=== PATIENT | female | born 1995 | race Caucasian/White ===

== ENCOUNTER → 2017-05-13 | Outpatient (CLI) | payer SELFPAY ==
[~2017-05-13] MED LIST: ALBU17AE23 IH; ALBUTEROL; AZIT250T PO; D-ME118S33 PO; PRD20T PO; TR1C15 TOP
--- NOTE | 2017-05-13 15:56 | Diagnostic Imaging Report ---
PROCEDURE: US Thyroid. TECHNIQUE: Multiple real-time grayscale images were obtained of the thyroid in various projections. INDICATION: Goiter. COMPARISON: None. FINDINGS: The right lobe measures 5.2 cm x 1.4 cm x 1.5 cm and the left lobe measures 4 cm x 1 cm x 1.6 cm. No focal nodule is seen. IMPRESSION: Unremarkable thyroid sonogram. Dictated by: Dictated on workstation # [id number]
== END ==
LOC: RAD 13:20
PROVIDERS: ATTEND Nurse Practitioner Family
DX: E04.9 Nontoxic goiter, unspecified (principal)
CPT/HCPCS: 76536

== ENCOUNTER → 2017-05-31 | Outpatient (CLI) | payer SELFPAY ==
--- NOTE | 2017-06-01 13:49 | Diagnostic Imaging Report ---
EXAMINATION: Nuclear Medicine I-123 thyroid uptake and scan. INDICATION: Goiter. COMPARISON: There are no previous Nuclear Medicine thyroid scans available for comparison. The thyroid ultrasound exam performed on 05/13/2017 noted that the thyroid gland was not enlarged and that there was no focal abnormality involving either lobe. FINDINGS: This study was performed following administration of 193 ?Ci of I-123. The 24-hour uptake value is 40.6% (normal 15-35%). The reason for the slightly elevated thyroid uptake is not certain. The possibility of hyperthyroidism should be considered. Correlation with the patient's thyroid laboratory values would be recommended. There is generalized distribution of the radiotracer throughout each lobe of the thyroid. There is no focal area of increased or decreased activity. IMPRESSION: 1. The 24 hour thyroid uptake value is slightly elevated. The reason for this is not certain. Clinical followup is recommended. 2. The thyroid gland itself is not enlarged and there is no focal area of increased or decreased activity involving either lobe. Dictated by: Dictated on workstation # [id number]
== END ==
LOC: CARD 11:51
PROVIDERS: ATTEND Physician Assistant
DX: E04.9 Nontoxic goiter, unspecified (principal)
CPT/HCPCS: 78014

== ENCOUNTER 2018-06-29 16:10 | Emergency (ER) | payer OTHER ==
[~2018-06-29] VITALS: Ht 170.2 cm; Wt 95.3 kg
--- NOTE | 2018-06-29 16:34 | ED Lower Extremity ---
General Chief Complaint: Lower Extremity Stated Complaint: R FOOT PAIN/NO INJ Source: patient Exam Limitations: no limitations History of Present Illness Date Seen by Provider: Jun 29, 2018 Time Seen by Provider: 16:32 Initial Comments To ER by mother with reports of right forefoot pain for about 36 hours upon awakening worse with weightbearing. No known injury. 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 Onset: just prior to arrival Severity: moderate Pain/Injury Location: right foot Method of Injury: unknown Modifying Factors: Worse With Movement Allergies and Home Medications Allergies Coded Allergies: No Known Drug Allergies (Unverified , 08/12/08) Home Medications Albuterol 17 Gm Aerosol, 1 GM IH PRN, (Reported) Azithromycin 250 Mg Tablet, 250 MG PO UD TAKE 2 TABLETS TODAY, THEN TAKE 1 TABLET DAILY FOR 4 MORE DAYS Prescribed by: SAÚL PINZON on 04/29/151853 D-Methorphan Hb/P-Epd HCl/Bpm 118 Ml Syrup, 5 ML PO Q4H PRN for COUGH Prescribed by: SAÚL PINZON on 04/29/151853 Triamcinolone Acet 15 Gm Cr, 0 TOP BID - TID PRN APPLY SPRARINGLY TO AFFECTED AREA(S) Prescribed by: SAÚL PINZON on 08/02/14 1845 Patient Home Medication List Home Medication List Reviewed: Yes Review of Systems Constitutional: see HPI EENTM: see HPI Respiratory: no symptoms reported Cardiovascular: no symptoms reported Genitourinary: no symptoms reported Musculoskeletal: no symptoms reported Skin: no symptoms reported Psychiatric/Neurological: No Symptoms Reported Past Ssfttyf-Ovkxet-Cditde Hx Patient Social History Recent Foreign Travel: No Contact w/Someone Who Travel: No Immunizations Up To Date PED Vaccines UTD: Yes Seasonal Allergies Seasonal Allergies: No Past Medical History Asthma Reproductive Disorders: No Sexually Transmitted Disease: No HIV/AIDS: No Adverse Reaction/Blood Tranf: No Family Medical History Asthma Physical Exam Vital Signs Capillary Refill : Height, Weight, BMI Height: 5'7" Weight: 186lbs. 8oz. 84.123105yc; 29.13 BMI Method:Actual General Appearance: WD/WN, no apparent distress HEENT: PERRL/EOMI, normal ENT inspection Respiratory: no respiratory distress, no accessory muscle use Hips: bilateral hip non-tender, bilateral hip normal inspection, bilateral hip normal range of motion Legs: bilateral leg non-tender, bilateral leg normal inspection, bilateral leg normal range of motion Knees: bilateral knee non-tender, bilateral knee normal inspection, bilateral knee normal range of motion Ankles: bilateral ankle non-tender Feet: bilateral foot non-tender (Nontender nontender to palpation on the right , only pain with weightbearing to the distal foot. No erythema or swelling.), bilateral foot normal inspection, bilateral foot normal range of motion Neurologic/Psychiatric: alert, normal mood/affect, oriented x 3 Skin: normal color, warm/dry Departure Impression Primary Impression: Right foot sprain Qualified Codes: S93.601A - Unspecified sprain of right foot, initial encounter Disposition: HOME, SELF-CARE Condition: Against Medical Advice Departure-Patient Inst. Decision time for Depature: 16:34 Referrals: [facility] [place] ([place]Family) Primary Care Physician Patient Instructions: Foot Sprain (DC) Add. Discharge Instructions: 1. Return to ER for any concerns 2. Tylenol and Motrin for pain 3. Follow-up with her doctor next week if pain persists. All discharge instructions reviewed with patient and/or family. Voiced understanding. Images Extremities-Lower 1 - Other-See Progress Note SAÚL PINZON APRN Jun 29, 2018 16:34
--- NOTE | 2018-06-29 16:56 | Diagnostic Imaging Report ---
INDICATION: Right lateral foot pain FINDINGS: Three views of the right foot show no fracture, dislocation or other acute abnormalities. IMPRESSION: Negative right foot. Dictated by: Dictated on workstation # [id number]
[2018-06-29 17:01] VITALS: BP 150/70
--- OUTSIDE RECORDS SUMMARY | 2018-06-29 20:07 | XMS REPORT ---
Author Author Migration, Doctor Organization [facility] Address Unknown Phone Unavailable Care Team Providers Care Clay Roaster Name Role Phone Migration, Doctor Unavailable Unavailable PROBLEMS Type Condition ICD9-CM Code PMI46-DP Code Onset Dates Condition Status SNOMED Code Problem Goiter E04.9 Active 2475115 Problem Other obesity due to excess calories E66.09 Active 422750044 Problem Elevated fasting glucose R73.01 Active 63337278 Problem GERD (gastroesophageal reflux disease) K21.9 Active 096634129 Problem Mild intermittent asthma without complication J45.20 Active 480288447 Problem Body mass index (BMI) of 32.0-32.9 in adult Z68.32 Active 615472578 ALLERGIES No Information ENCOUNTERS Encounter Location Date Diagnosis [place] [address] [address] Sep, [place] [address] [address] May, [place] [address] [address] May, Goiter E04.9 and URI, acute J06.9 [place] [address] [place] [id number] [place] [address] May, Goiter E04.9 [place] [address] [place] [id number] [place] [address] Apr, Goiter E04.9 [place] [address] [address] Apr, 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 [place] [address] [place] [id number] [place] [address]- [address] Apr, 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 [place] [address] [address] 30 Mar, 2017 Mild intermittent asthma without complication J45.20 ; GERD (gastroesophageal reflux disease) K21.9 ; Other obesity due to excess calories E66.09 ; Body mass index (BMI) of 32.0-32.9 in adult Z68.32 ; Goiter E04.9 and Nodule of neck R22.[address] [address] Mar, [facility] [address] [address] Feb, Cough R05 and Mild intermittent asthma without complication J45.[address] [id number] 24 May, 2015 Abdominal pain R10.9 ; PCOS (polycystic ovarian syndrome) E28.2 and Epigastric abdominal pain R10.[address] [address] May, Abdominal pain R10.9 ; Asthma J45.909 ; GERD ( gastroesophageal reflux disease) K21.9 and UTI (urinary tract infection) N39.[address] [address] Jan, Gastro-esophageal reflux disease without esophagitis K21.9 and Dysmenorrhea N94.[address] [id number] Nov, Upper respiratory infection 465.[address] [address] 09 Nov, 2014 Upper respiratory infection 465.9 and Asthma 493.[address] [id number] Oct, Bronchitis 490 and Ph[address]itis [address] [address] Jun, [address] [place] [address] Jun, [facility] [address] [facility] [id number] [place] [address] May, [facility] [address] [facility] [id number] [place] [address] May, [facility] [address] [facility] [id number] [place] [id number] Apr, [facility] [place] [facility] [address] [facility] [id number] [place] [address] Apr, [facility] [address] [facility] [id number] [place] [address] July, [facility] [place] [facility] [address] [facility] [id number] [place] [address] July, [facility] [address] [place] [id number] [address] May, [facility] [place] [facility] [address] [facility] [id number] [place] [address] May, [facility] [address] [facility] [id number] [place] [address] Nov, [facility] [place] [facility] [address] [facility] [id number] [place] [address] Nov, [facility] [address] [id number] [id number] Oct, [facility] [place] [facility] [address] [id number] [place] [address] Oct, [facility] [place] [facility] [address] [id number] [place] [address] Aug, [facility] [place] [facility] [address] [facility] [id number] [place] [address] July, [facility] [place] [facility] [address] [facility] [id number] [place] [address] July, [facility] [place] [facility] [address] [facility] [id number] [place] [address] Jun, [facility] [address] [facility] [id number] [place] [address] Apr, [facility] [address] [facility] [id number] [place] [address] Apr, [facility] [id number] [place] [id number] Mar, [facility] [address] [facility] [id number] [place] [address] Mar, [facility] [address]00565100[place] [address] Feb, [facility] [address] [facility] [id number] [place] [address] Feb, [facility] [address]65[address] [address] Feb, [facility] [address] [facility] [id number] [place] [address] Feb, [facility] [id number] [place] [id number] Dec, [facility] [id number] [place] [id number] Dec, [facility] [address]65[address] [address] Dec, [facility] [address] [facility] [id number] [place] [address] Dec, [facility] [address] [facility] [id number] [place] [id number] Nov, [facility] [address] [facility] [id number] [place] [address] Sep, [facility] [place] [facility] [address] [place] [id number] [address] July, [facility] [address]00565100[place] [address] May, [facility] [place] [address]65100[place] [address] Mar, [facility] [place] [address]65100[place] [address] Nov, [facility] [place] [address]65100[place] [address] Oct, [facility] [place] [address] [place] [id number] [address] Mar, [facility] [place] [address] [place] [id number] [place] [address] Feb, [facility] [place] [address]65100[place] [address] Dec, [facility] [place] [id number] [place] [address] Dec, [facility] [place] [address]65100[place] [address] Nov, [facility] [place] [address]65100[place] [address] Dec, [facility] [place] [address]65100[place] [address] July, [facility] [place] [address]65100[place] [address] Dec, IMMUNIZATIONS No Known Immunizations SOCIAL HISTORY Never Assessed REASON FOR VISIT [place] [place] PLAN OF CARE VITAL SIGNS MEDICATIONS Medication Instructions Dosage Frequency Start Date End Date Duration Status Naftin 1 % apply to the affected and surrounding areas of skin by Topical route 1 time per day for 4 weeks use at Apr, Active Albuterol 90 mcg/actuation 2 puffs by Inhalation route 4 times per dayPRN Dec, Active Omnicef 300 mg 2 capsule by Oral route 1 time per day for 14 day(s) Mar, Active PredniSONE 20 mg 3 tablet by Oral route 1 time per day for 5 day(s) Mar, Active RESULTS No Results PROCEDURES No Known procedures INSTRUCTIONS MEDICATIONS ADMINISTERED No Known Medications MEDICAL (GENERAL) HISTORY Type Description Date Medical History asthma Hospitalization History pneumonia x 2 as infant
--- OUTSIDE RECORDS SUMMARY | 2018-06-29 20:07 | XMS REPORT ---
Author Author CHERILIZZIE Organization [facility] Address [address] [place] [address] Care Team Providers Care Restaurant Server Name Role Phone LIZZIE ALONZO Unavailable PROBLEMS Type Condition ICD9-CM Code IKZ56-CA Code Onset Dates Condition Status SNOMED Code Problem Other obesity due to excess calories E66.09 Active 567610387 Problem Goiter E04.9 Active 6783144 Problem GERD (gastroesophageal reflux disease) K21.9 Active 535133265 Problem Elevated fasting glucose R73.01 Active 06075353 Problem Body mass index (BMI) of 32.0-32.9 in adult Z68.32 Active 607055468 Problem Mild intermittent asthma without complication J45.20 Active 492065788 ALLERGIES No Information ENCOUNTERS Encounter Location Date Diagnosis [place] [address] [address] Sep, [place] [address] [address] May, [place] [address] [address] May, Goiter E04.9 and URI, acute J06.9 [place] [address] [place] [id number] [place] [address] May, Goiter E04.9 [place] [address] [address] 15 Apr, 2017 Goiter E04.9 [place] [address] [place] [id number] [place] [address] Apr, 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 [address] [place] [id number] [place] [address] Mar, [facility] [address] [address] Feb, Cough R05 and Mild intermittent asthma without complication J45.20 [facility] [address] [id number] 24 May, 2015 Abdominal pain R10.9 ; PCOS (polycystic ovarian syndrome) E28.2 and Epigastric abdominal pain R10.13 [place] [address] [place] [id number] [place] [address] May, Abdominal pain R10.9 ; Asthma J45.909 ; GERD ( gastroesophageal reflux disease) K21.9 and UTI (urinary tract infection) N39.0 [place] [address] [place] [id number] [place] [address] Jan, Gastro-esophageal reflux disease without esophagitis K21.9 and Dysmenorrhea N94.6 [facility] [address] [place] [id number] [place] [id number] 10 Nov, 2014 Upper respiratory infection 465.9 [place] [address] [place] [id number] [place] [address]- [address] 09 Nov, 2014 Upper respiratory infection 465.9 and Asthma 493.90 [facility] [address] [place] [id number] [place] [id number] Oct, Bronchitis 490 and Pharyngitis 462 [place] [address] [address] Jun, [facility] [place] [facility] [address] [id number] [place] [address] 25[address] Jun, [facility] [place] [facility] [address] [facility] [id number], [place] [address]- [address] May, [facility] [place] [facility] [address] [facility] [id number], [place] [address]- [address] May, [facility] [address] [facility] [id number][place] [id number] Apr, [facility] [place] [facility] [address] [id number] [place] [address] Apr, [facility] [place] [facility] [address] [facility] [id number], [place] [address] July, [facility] [place] [facility] [address] [facility] [id number], [place] [address]- [address] July, [facility] [place] [facility] [address] [facility] [id number], [place] [address]- 58[address] May, [facility] [place] [facility] [address] [facility] [id number], [place] [address]- [address] May, [facility] [place] [facility] [address] [facility] [id number], [place] [address] Nov, [facility] [place] [facility] [address] [id number], [place] [address]- [address] Nov, [facility] [address] [facility] [id number][place] [id number] Oct, [facility] [place] [facility] [address] [id number] [place] [address]- [address] Oct, [facility] [place] [facility] [address] [facility] [id number], [place] [address]- 25[address] Aug, [facility] [place] [facility] [address] [facility] [id number], [place] [address]- [address] July, [facility] [place] [facility] [id number], [place] [address] July, [facility] [address]00565100[place], [place] [address]- [address] Jun, [facility] [address] [place] [address]- [address] Apr, [facility] [address]00565100[place], [place] [address]- [address] Apr, [facility] [address] [place] [id number] Mar, [facility] [address] [place] [id number] [place] [address]- 7[address] Mar, [facility] [address] [place] [id number] [place] [address]- 8456 Feb, [facility] [address] [place] [id number] [place] [address]- 8286 Feb, [facility] [address] [place] [id number], [place] [address]- [address] Feb, [facility] [address] [place] [id number] [place] [address]- [address] Feb, [facility] [address] [place] [id number] Dec, [facility] [address] [place] [address] [id number] Dec, [facility] [place] [facility] [address]00565100[place], [place] [address]- [address] Dec, [facility] [address] [facility] [id number], [place] [address]- 25[address] Dec, [facility] [address] [place] [id number] Nov, [facility] [place] [facility] [address]65100[place], [place] [address] Sep, [facility] [place] [facility] [address]00565100[place], [place] [address] July, [facility] [address] [place] [id number] [address] May, [facility] [address] [facility] [id number], [place] [address] Mar, [facility] [address]00565100[place] [address] Nov, [facility] [address] [facility] [id number] [address] Oct, [facility] [address] [facility] [id number] [address] Mar, [facility] [address]00565100[place] [address] Feb, [facility] [address]00565100[place] [address] Dec, [facility] [address]00565100[place] [address] Dec, [facility] [address]00565100[place] [address] Nov, [facility] [address]00565100[place] [address] Dec, [facility] [address] [place] [id number], [place] [address] July, [facility] [address]65100[place], [place] [address] 2546 Dec, IMMUNIZATIONS No Known Immunizations SOCIAL HISTORY Never Assessed REASON FOR VISIT Medication refill request PLAN OF CARE VITAL SIGNS MEDICATIONS Unknown Medications RESULTS No Results PROCEDURES No Known procedures INSTRUCTIONS MEDICATIONS ADMINISTERED No Known Medications MEDICAL (GENERAL) HISTORY Type Description Date Medical History asthma Hospitalization History pneumonia x 2 as
--- OUTSIDE RECORDS SUMMARY | 2018-06-29 20:08 | XMS REPORT ---
Author Author CHERI LIZZIE Organization [facility] Address [address] [place] [address] Care Team Providers Care Smoke Chaser Name Role Phone ALONZOLIZZIE Armstrong Unavailable PROBLEMS Type Condition ICD9-CM Code XWR13-SN Code Onset Dates Condition Status SNOMED Code Problem Other obesity due to excess calories E66.09 Active 881525167 Problem Goiter E04.9 Active 6469258 Problem GERD (gastroesophageal reflux disease) K21.9 Active 612776694 Problem Elevated fasting glucose R73.01 Active 23436048 Problem Body mass index (BMI) of 32.0-32.9 in adult Z68.32 Active 473671787 Problem Mild intermittent asthma without complication J45.20 Active 186638471 ALLERGIES No Information ENCOUNTERS Encounter Location Date Diagnosis [place] [address] [address] May, [place] [address] [address]- [address] May, Goiter E04.9 and URI, acute J06.9 [facility] [address] 73739- 9608 May, Goiter E04.9 [facility] [address] [place] [id number] [place] [address]77- 0614 Apr, Goiter E04.9 [facility] [address] [address]- 1992 Apr, 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 WALK IN [facility] [address] [address] Feb, Cough R05 and Mild intermittent asthma without complication J45.[address] [id number] 24 May, 2015 Abdominal pain R10.9 ; PCOS (polycystic ovarian syndrome) E28.2 and Epigastric abdominal pain R10.13 [place] [address] [address]- 48[address] May, Abdominal pain R10.9 ; Asthma J45.909 ; GERD ( gastroesophageal reflux disease) K21.9 and UTI (urinary tract infection) N39.0 [place] [address] 37[address]- 9039 Jan, Gastro-esophageal reflux disease without esophagitis K21.9 and Dysmenorrhea N94.[address] [id number] Nov, Upper respiratory infection 465.9 [place] [address] 45756- 8487 Nov, Upper respiratory infection 465.9 and Asthma 493.[address] [id number] Oct, Bronchitis 490 and Pharyngitis 462 [place] [address] 5[address]60- 9798 Jun, [place] [address] 94380- 2546 Jun, [facility] [address] [id number] [place] [address] 2546 May, [facility] [address] [id number] [place] [address] 2546 May, [facility] [address] [facility] [id number][place] [id number] Apr, [facility] [place] [facility] [address] [id number] [place] [address] 2546 Apr, [facility] [address] [id number] [place] [address] 2546 July, [facility] [place] [facility] [address] [id number] [place] [address] 2546 July, [facility] [address] [facility] [id number] [place] [address]- 2546 May, [facility] [place] [facility] [address] [id number] [place] [address] 2546 May, [facility] [address] [id number] [place] [address]- 3176 Nov, [facility] [place] [facility] [address] [id number] [place] [address]- 2546 Nov, [facility] [address] [facility] [id number][place] [id number] Oct, [facility] [place] [facility] [address] [id number] [place] [address]- 2546 Oct, [facility] [place] [facility] [address] [id number] [place] [address]- 2546 Aug, [facility] [place] [facility] [address] [id number] [place] [address]- 2546 July, [facility] [place] [facility] [address] [id number] [place] [address]- 2546 July, [facility] [place] [facility] [address] [id number] [place] [address]- 4576 Jun, [facility] [address]65100[place] [address]- 4056 Apr, [facility] [address]65100[place] [address]- 1066 Apr, [facility] [id number][place] [id number] Mar, [facility] [place] [facility] [address] [place] [id number] [place] [address] 94699- 3148 Mar, [facility] [address] [place] [id number] [place] [address] 86746- 4207 Feb, [facility] [place] [facility] [address] [place] [id number] [place] [address] 53173- 4560 Feb, [facility] [address] [id number] [place] [address] 00047- 5799 Feb, [facility] [address]65100[place] [address]- 8125 Feb, [facility] [id number] [place] [id number] Dec, [facility] [address] [place] [address] [id number] Dec, [facility] [address]65100[place] [address]- 6906 Dec, [facility] [place] [facility] [address]65100[place] [address]- 1626 Dec, [facility] [address]00565100[place] [id number] Nov, [facility] [place] [facility] [address] [place] [address] [id number] [place] [address]- 9296 Sep, [facility] [place] [facility] [address]65100[place] [address]- 2306 July, [facility] [place] [facility] [address]65100[place] [address]- 2786 May, [facility] [address] [facility] [id number] [place] [address]- 9649 Mar, [facility] [address] [facility] [id number] [place] [address]- 3276 Nov, [facility] [address]65100[place] [address]- 3123 Oct, [facility] [address] [facility] [id number] [place] [address]- 3406 Mar, [facility] [address] [facility] [id number] [place] [address]- 7390 Feb, [facility] [address]65[address] [address]- 0979 Dec, [facility] [address]65[address] [address]- 0339 Dec, [facility] [address]65[address] [address]- 9430 Nov, [facility] [address]65[address] [address]64 Dec, [facility] [address]65100[place] [address]- 6329 July, [facility] [address] [place] [id number] [place] [address]- 0268 Dec, IMMUNIZATIONS No Known Immunizations SOCIAL HISTORY Never Assessed REASON FOR VISIT Requests return call PLAN OF CARE VITAL SIGNS MEDICATIONS Unknown Medications RESULTS Name Result Date Reference Range NUCLEAR MED : Thyroid Scan 2017-05-31 PROCEDURES No Known procedures INSTRUCTIONS MEDICATIONS ADMINISTERED No Known Medications MEDICAL (GENERAL) HISTORY Type Description Date Medical History asthma Hospitalization History pneumonia x 2 as infant
--- OUTSIDE RECORDS SUMMARY | 2018-06-29 20:08 | XMS REPORT ---
Author Author CHERI LIZZIE Organization [facility] Address [address] [place] [address] Care Team Providers Care Hall Tender Name Role Phone ALONZOLIZZIE Armstrong Unavailable PROBLEMS Type Condition ICD9-CM Code AFD74-FW Code Onset Dates Condition Status SNOMED Code Problem Other obesity due to excess calories E66.09 Active 913408066 Problem Goiter E04.9 Active 6181312 Problem GERD (gastroesophageal reflux disease) K21.9 Active 748738471 Problem Elevated fasting glucose R73.01 Active 73665308 Problem Body mass index (BMI) of 32.0-32.9 in adult Z68.32 Active 325076598 Problem Mild intermittent asthma without complication J45.20 Active 365848689 ALLERGIES No Known Allergies ENCOUNTERS Encounter Location Date Diagnosis [place] [address] [address]- [address] May, [place] [address] 24892- 5754 May, Goiter E04.9 and URI, acute J06.9 [place] [address] [place] [id number] [place] [address] 46779- 0625 May, Goiter E04.9 [facility] [address] [place] [id number] [place] [address] 56373- 7275 Apr, Goiter E04.9 [facility] [address] 17186- 9137 Apr, 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 [address] 255[address] -[address]43 Feb, Cough R05 and Mild intermittent asthma without complication J45.20 [facility] [address] [id number] May, Abdominal pain R10.9 ; PCOS (polycystic ovarian syndrome) E28.2 and Epigastric abdominal pain R10.[address] [address]- 1582 May, Abdominal pain R10.9 ; Asthma J45.909 ; GERD ( gastroesophageal reflux disease) K21.9 and UTI (urinary tract infection) N39.[address] 16185- 8224 Jan, Gastro-esophageal reflux disease without esophagitis K21.9 and Dysmenorrhea N94.[address] [id number] Nov, Upper respiratory infection 465.9 [place] [address] 96272- 3948 Nov, Upper respiratory infection 465.9 and Asthma 493.[address] [id number] Oct, Bronchitis 490 and Pharyngitis 462 [place] [address] 80[address]- 0786 Jun, [place] [address] 21100- 2546 Jun, [facility] [address] [id number], [place] [address]- 2546 May, [facility] [address] [id number][place] [address]- 2546 May, [facility] [address] [facility] [id number][place] [address] Apr, [facility] [place] [facility] [address] [id number], [place] [address] 2546 Apr, [facility] [place] [facility] [address] [id number], [place] [address]- 2676 July, [facility] [place] [facility] [address] [id number], [place] [address] 2546 July, [facility] [address] [facility] [id number][place] [address]- 2546 May, [facility] [place] [facility] [address] [id number], [place] [address] 2546 May, [facility] [address] [id number], [place] [address]- 4486 Nov, [facility] [place] [facility] [address] [id number], [place] [address]- 2546 Nov, [facility] [address] [facility] [id number][place] [id number] Oct, [facility] [place] [facility] [address] [id number], [place] [address] 2546 Oct, [facility] [place] [facility] [address] [id number], [place] [address]- 2546 Aug, [facility] [place] [facility] [address] [id number], [place] [address]- 2546 July, [facility] [place] [facility] [address] [id number], [place] [address]- 2546 July, [facility] [place] [facility] [address]00565100[place], [place] [address]- 5216 Jun, [facility] [address]00565100[place], [place] [address]- 9286 Apr, [facility] [address]00565100[place], [place] [address]- 8006 Apr, [facility] [id number], [place] [address] Mar, [facility] [place] [facility] [address]00565100[place], [place] [address]- 8406 Mar, [facility] [id number] [place] [address] 01809- 1510 Feb, [facility] [place] [facility] [address] [place] [id number], [place] [address]- 9666 Feb, [facility] [id number] [place] [address] 48847- 3141 Feb, [facility] [address]00565100[place], [place] [address]- 3761 Feb, [facility] [id number], [place] [id number] Dec, [facility] [id number] [place] [address] [id number] Dec, [facility] [address]00565100[place], [place] [address]- 5996 Dec, [facility] [place] [facility] [address]00565100[place], [place] [address]- 4236 Dec, [facility] [address] [place] [id number] [id number] Nov, [facility] [place] [facility] [address] [place] [id number], [place] [address]- 5796 Sep, [facility] [place] [facility] [address]00565100[place], [place] [address]- 8356 July, [facility] [place] [facility] [address]00565100[place], [place] [address] 2546 May, [facility] [address] [place] [id number], [place] [address]- 8696 Mar, [facility] [address]00565100[place], [place] [address] 2546 Nov, [facility] [address]00565100[place], [place] [address] 2546 Oct, [facility] [address]00565100[place], [place] [address]- 2896 Mar, [facility] [address]00565100[place], [place] [address]- 5096 Feb, [facility] [address] [place] [address] 51317- 6681 Dec, [facility] [address]00565100[place], [place] [address]- 1524 Dec, [facility] [address]00565100[place], [place] [address]- 0563 Nov, [facility] [address]00565100[place], [place] [address]- 9081 Dec, [facility] [address]00565100[place], [place] [address]- 7799 July, [facility] [address] [place] [id number], [place] [address]- 5676 Dec, IMMUNIZATIONS No Known Immunizations SOCIAL HISTORY Never Assessed REASON FOR VISIT follow up, knot on back of neck and back of the left ear. -[facility] PLAN OF CARE Activity Details Follow Up 3 Months, prn Reason:chm VITAL SIGNS Height 67.2 in 2017-05-24 Weight 206.5 lbs 2017-05-24 Temperature 99.0 degrees Fahrenheit 2017-05-24 Heart Rate 90 bpm 2017-05-24 Respiratory Rate 20 2017-05-24 BMI 32.15 kg/m2 2017-05-24 Blood pressure systolic 120 mmHg 2017-05-24 Blood pressure diastolic 86 mmHg 2017-05-24 MEDICATIONS Medication Instructions Dosage Frequency Start Date End Date Duration Status ProAir HFA 108 (90 Base) MCG/ACT Inhalation every 6 hrs 2 puffs as needed 6h Feb, 30 days Active E-Z Spacer - as directed Feb, 30 days Active RESULTS No Results PROCEDURES No Known procedures INSTRUCTIONS MEDICATIONS ADMINISTERED No Known Medications MEDICAL (GENERAL) HISTORY Type Description Date Medical History asthma Hospitalization History pneumonia x 2 as infant
--- OUTSIDE RECORDS SUMMARY | 2018-06-29 20:08 | XMS REPORT ---
Author Author CHERILIZZIE Organization [facility] Address [address] [place] [address] Care Team Providers Care Microstrategy Architect Name Role Phone LIZZIE ALONZO Unavailable PROBLEMS Type Condition ICD9-CM Code HYU40-ZC Code Onset Dates Condition Status SNOMED Code Problem Other obesity due to excess calories E66.09 Active 659162497 Problem Goiter E04.9 Active 2494246 Problem GERD (gastroesophageal reflux disease) K21.9 Active 362394013 Problem Elevated fasting glucose R73.01 Active 94901472 Problem Body mass index (BMI) of 32.0-32.9 in adult Z68.32 Active 566027827 Problem Mild intermittent asthma without complication J45.20 Active 951410717 ALLERGIES No Information ENCOUNTERS Encounter Location Date Diagnosis [place] [address] [address]- 1789 Sep, [place] [address] 98842- 9215 May, [place] [address] 58040- 9660 May, Goiter E04.9 and URI, acute J06.9 [place] [address] [place] [id number] [place] [address] 75417- 1886 May, Goiter E04.9 [place] [address] 78616- 2615 15 Apr, 2017 Goiter E04.9 [place] [address] [place] [id number] [place] [address] 76946- 8127 Apr, 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 [place] [address] 11450- 4376 Apr, 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 [place] [address] [place] [id number] [place] [address] 37082- 2094 Mar, Mild intermittent asthma without complication J45.20 ; GERD (gastroesophageal reflux disease) K21.9 ; Other obesity due to excess calories E66.09 ; Body mass index (BMI) of 32.0-32.9 in adult Z68.32 ; Goiter E04.9 and Nodule of neck R22.1 [facility] [address] [place] [id number] [place] [address] 39157- 4712 Mar, [facility] WALK IN [facility] [address] [address] -[address] Feb, Cough R05 and Mild intermittent asthma without complication J45.20 [facility] [address] [id number] 24 May, 2015 Abdominal pain R10.9 ; PCOS (polycystic ovarian syndrome) E28.2 and Epigastric abdominal pain R10.13 [place] [address] [place] [id number] [place] [address] 89919- 7604 May, Abdominal pain R10.9 ; Asthma J45.909 ; GERD ( gastroesophageal reflux disease) K21.9 and UTI (urinary tract infection) N39.0 [place] [address] [place] [id number] [place] [address] 74896- 1773 Jan, Gastro-esophageal reflux disease without esophagitis K21.9 and Dysmenorrhea N94.6 [facility] [address] [place] [id number] [place] [address] [id number] 10 Nov, 2014 Upper respiratory infection 465.9 [place] [address] [place] [id number] [place] [address] 49960- 1617 09 Nov, 2014 Upper respiratory infection 465.9 and Asthma 493.90 [facility] [address] [place] [id number] [place] [address] [id number] Oct, Bronchitis 490 and Pharyngitis 462 [place] [address] [address] 2546 Jun, [facility] [place] [facility] [address] [id number] [place] [address] 2546 Jun, [facility] [place] [facility] [address] [facility] [id number] [address]- 2546 May, [facility] [place] [facility] [address] [facility] [id number][place] [address]- 2546 May, [facility] [address] [facility] [id number] [place] [address] Apr, [facility] [place] [facility] [address] [id number] [place] [address] 2546 Apr, [facility] [place] [facility] [address] [facility] [id number], [place] [address]- 6986 July, [facility] [place] [facility] [address] [facility] [id number], [place] [address]- 5696 July, [facility] [place] [facility] [address] [facility] [id number], [place] [address]- 2986 May, [facility] [place] [facility] [address] [facility] [id number], [place] [address]- 1066 May, [facility] [place] [facility] [address] [facility] [id number], [place] [address] 2546 Nov, [facility] [place] [facility] [address] [id number], [place] [address]- 2546 Nov, [facility] 120 [facility] [id number] [place] [id number] Oct, [facility] [place] [facility] [address] [id number] [place] [address]- 2546 Oct, [facility] [place] [facility] [address] [facility] [id number], [place] [address]- 2546 Aug, [facility] [place] [facility] [address] [facility] [id number], [place] [address]- 2546 July, [facility] [place] [facility] [id number], [place] [address]- 4166 July, [facility] [address]00565100[place], [place] [address]- 9396 Jun, [facility] [id number] [place] [address] 24559- 8976 Apr, [facility] [address]00565100[place], [place] [address]- 5826 Apr, [facility] [address] [place] [address] [id number] Mar, [facility] [address] [place] [id number] [place] [address] 02463- 5976 Mar, [facility] [address] [place] [id number] [place] [address] 09496- 1876 Feb, [facility] [address] [place] [address] [id number] [place] [address] 97330- 8586 Feb, [facility] [address] [place] [id number], [place] [address]- 7616 Feb, [facility] [address] [place] [id number] [place] [address] 29552- 2563 Feb, [facility] [address] [place] [address] [id number] Dec, [facility] [id number] [place] [id number] Dec, [facility] [id number] [address] Dec, [facility] [address] [facility] [id number], [place] [address] Dec, [facility] [id number] [place] [id number] Nov, [facility] [id number] [address] Sep, [facility] [id number], [place] [address] July, [facility] [id number] [address] May, [facility] [id number], [place] [address] Mar, [facility] [id number], [place] [address] Nov, [facility] [address] [facility] [id number], [place] [address] Oct, [facility] [id number], [place] [address] Mar, [facility] [id number], [place] [address] Feb, [facility] [id number], [place] [address] Dec, [facility] [id number], [place] [address] Dec, [facility] [id number], [place] [address] Nov, [facility] [id number], [place] [address] Dec, [facility] [id number], [place] [address] July, [facility] [id number], [place] [address] Dec, IMMUNIZATIONS No Known Immunizations SOCIAL HISTORY Never Assessed REASON FOR VISIT thyroid results PLAN OF CARE VITAL SIGNS MEDICATIONS Unknown Medications RESULTS No Results PROCEDURES No Known procedures INSTRUCTIONS MEDICATIONS ADMINISTERED No Known Medications MEDICAL (GENERAL) HISTORY Type Description Date Medical History asthma Hospitalization History pneumonia x 2 as infant
--- OUTSIDE RECORDS SUMMARY | 2018-06-29 20:08 | XMS REPORT ---
Author Author JUSTINA LOPEZ Organization [employer] Address Unknown Phone Unavailable Care Team Providers Care Business Control Specialist Name Role Phone JUSTINA LOPEZ CP Unavailable Allergies, Adverse Reactions, Alerts Substance Reaction Event Type N.K.D.A. Info Not Available Non Drug Allergy Problems Problem Type Condition ICD-9 Code Onset Dates Condition Status Problem Other general medical examination for administrative purposes V70.3 Active Problem Molluscum contagiosum 078.0 Active Problem Other specified disease of nail 703.8 Active Problem Dermatophytosis of hand 110.2 Active Problem Ingrowing nail 703.0 Active Problem Dermatophytosis of foot 110.4 Active Problem Asthma, unspecified, with (acute) exacerbation 493.92 Active Problem Acute sinusitis, unspecified 461.9 Active Problem Acute upper respiratory infections of unspecified site 465.9 Active Problem Bunion 727.1 Active Assessment Pharyngitis 462 Active Assessment Bronchitis 490 Active Problem Other abnormal glucose 790.29 Active Problem Chest pain, unspecified 786.50 Active Problem Pain in soft tissues of limb 729.5 Active Problem Hallux valgus (acquired) 735.0 Active Problem Other malaise and fatigue 780.79 Active Problem Dysfunction of Eustachian tube 381.81 Active Medications Medication Code System Code Instructions Start Date End Date Status Dosage Amoxicillin [facility] [address]-77 500 MG Orally every 12 hrs Nov 12, 2014 Nov 22, 2014 2 tablets Procedures Procedure Coding System Code Date Office Visit, Est Pt., Level 3 CPT-4 02002 Nov 12, 2014 STREP A ASSAY W/OPTIC CPT-4 08556 Nov 12, 2014 Vital Signs Date/Time: Nov 12, 2014 Temperature 98.8 F BMIPercentile 90.34 % Weight 172.2 lbs Height 67 in BMI 26.97 Index Blood Pressure Diastolic 70 mmHg Blood Pressure Systolic 98 mmHg Cardiac Monitoring Heart Rate 88 bpm Wt Percentile 94.26 % Ht Percentile 86.72 % Results Name Result Date Reference Range Unit Abnormality Flag STREP A (IN HOUSE) Summary Purpose eClinicalWorks Submission
--- OUTSIDE RECORDS SUMMARY | 2018-06-29 20:08 | XMS REPORT ---
Author Author KARINE ALCALA [facility] Address [address] [place] [address] Care Team Providers Care Patch Finisher Name Role Phone KARINE ALCALA Unavailable PROBLEMS Type Condition ICD9-CM Code WHZ78-CW Code Onset Dates Condition Status SNOMED Code Problem Other obesity due to excess calories E66.09 Active 360005992 Problem Goiter E04.9 Active 9955702 Problem GERD (gastroesophageal reflux disease) K21.9 Active 283282277 Problem Elevated fasting glucose R73.01 Active 04215907 Problem Body mass index (BMI) of 32.0-32.9 in adult Z68.32 Active 886414600 Problem Mild intermittent asthma without complication J45.20 Active 316235301 ALLERGIES No Known Allergies ENCOUNTERS Encounter Location Date Diagnosis [place] [address] [address] Aug, [place] [address] [address] May, [place] [address] [address] May, Goiter E04.9 and URI, acute J06.9 [place] [address] [place] [id number] [place] [address] May, Goiter E04.9 [place] [address] [address] 15 Apr, 2017 Goiter E04.9 [place] [address] [address] 12 Apr, 2017 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 [place] [address] [address] [place] [address] 06 Apr, 2017 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 [place] [address] [address] Mar, Mild intermittent asthma without complication J45.20 ; GERD (gastroesophageal reflux disease) K21.9 ; Other obesity due to excess calories E66.09 ; Body mass index (BMI) of 32.0-32.9 in adult Z68.32 ; Goiter E04.9 and Nodule of neck R22.1 [place] [address] [address] Mar, [facility] [address] [address] Feb, Cough R05 and Mild intermittent asthma without complication J45.20 [facility] [address] [place] [id number] [place] [id number] 24 May, 2015 Abdominal pain R10.9 ; PCOS (polycystic ovarian syndrome) E28.2 and Epigastric abdominal pain R10.13 [place] [address] [place] [id number] [place] [address] 07 May, 2015 Abdominal pain R10.9 ; Asthma J45.909 ; GERD ( gastroesophageal reflux disease) K21.9 and UTI (urinary tract infection) N39.0 [place] [address] [place] [id number] [place] [address] Jan, Gastro-esophageal reflux disease without esophagitis K21.9 and Dysmenorrhea N94.6 [facility] [address] [place] [id number] [place] [id number] Nov, Upper respiratory infection 465.9 [place] [address] [address] Nov, Upper respiratory infection 465.9 and Asthma 493.90 [facility] [address] [place] [id number] [place] [address] [id number] Oct, Bronchitis 490 and Pharyngitis 462 [place] [address] [address] [place] [id number] [place] [address] Jun, [facility] [address] [id number] [place] [address] Jun, [facility] [place] [facility] [address] [id number] [place] [address] May, [facility] [address] [id number] [place] [address] May, [facility] [address] [facility] [id number] [id number] Apr, [facility] [address] [id number] [place] [address] 25[address] Apr, [facility] [place] [facility] [address] [id number] [place] [address] July, [facility] [address] [id number] [place] [address]- [address] July, [facility] [place] [facility] [address] [id number] [place] [address] 2546 May, [facility] [place] [facility] [address] [id number] [place] [address] May, [facility] [place] [facility] [address] [id number] [place] [address]- 25[address] Nov, [facility] [place] [facility] [address] [id number] [place] [address]- [address] Nov, [facility] [address] [facility] [id number] [id number] Oct, [facility] [place] [facility] [address] [id number] [place] [address]- [address] Oct, [facility] [place] [facility] [address] [id number] [place] [address] 2546 Aug, [facility] [place] [facility] [address] [id number] [place] [address]- 25[address] July, [facility] [place] [facility] [address] [facility] [id number] [place] [address] July, [facility] [address] [facility] [id number] [place] [address]- 47[address] Jun, [facility] [address] [facility] [id number] [place] [address]- 25[address] Apr, [facility] [address] [facility] [id number] [place] [address] Apr, [facility] [address] [id number] [id number] Mar, [facility] [address] [place] [address] Mar, [facility] [address] [place] [id number] [address] Feb, [facility] [address] [address] Feb, [facility] [address] [facility] [id number], [place] [address] Feb, [facility] [address] [address] Feb, [facility] [id number] [place] [id number] Dec, [facility] [id number] [place] [id number] Dec, [facility] [address] [facility] [id number], [place] [address] Dec, [facility] [address] [facility] [id number], [place] [address] Dec, [facility] [address] [facility] [id number] [place] [id number] Nov, [facility] [place] [facility] [address] [address] Sep, [facility] [address] [place] [id number] [address] July, [facility] [address], [place] [address] May, [facility] [address], [place] [address] Mar, [facility] [address]65[address], [place] [address] Nov, [facility] [address]65[address], [place] [address] Oct, [facility] [address], [place] [address] Mar, [facility] [address], [place] [address] Feb, [facility] [address], [place] [address] Dec, [facility] [address]65[address], [place] [address] Dec, [facility] [address], [place] [address] Nov, [facility] [address], [place] [address] Dec, [facility] [address] [place] [id number] [address] July, [facility] [address] [place] [id number], [place] [address] Dec, IMMUNIZATIONS No Known Immunizations SOCIAL HISTORY Never Assessed REASON FOR VISIT Cough for 2 months JStrasserRN PLAN OF CARE Activity Details Follow Up prn Reason: VITAL SIGNS Height 67.2 in 2017-03-04 Weight 206 lbs 2017-03-04 Temperature 98.9 degrees Fahrenheit 2017-03-04 Heart Rate 116 bpm 2017-03-04 Respiratory Rate 18 2017-03-04 BMI 32.07 kg/m2 2017-03-04 Blood pressure systolic 124 mmHg 2017-03-04 Blood pressure diastolic 82 mmHg 2017-03-04 MEDICATIONS Medication Instructions Dosage Frequency Start Date End Date Duration Status Tessalon Perles 100 MG Orally Three times a day 1 capsule as needed 8h Feb, Feb, 5 days Active Omeprazole 40 MG Orally Once a day 1 capsule 24h 10 Jan, 2015 Not- Taking E-Z Spacer - as directed Feb, 30 days Active ProAir HFA 108 (90 Base) MCG/ACT Inhalation every 6 hrs 2 puffs as needed 6h Feb, 30 days Active RESULTS No Results PROCEDURES No Known procedures INSTRUCTIONS MEDICATIONS ADMINISTERED No Known Medications MEDICAL (GENERAL) HISTORY Type Description Date Medical History asthma Hospitalization History pneumonia x 2 as infant
--- OUTSIDE RECORDS SUMMARY | 2018-06-29 20:08 | XMS REPORT ---
Author Author SERGIO BARRAGAN Organization [employer] Address Unknown Phone Unavailable Care Team Providers Care Dairy Feed Mixing Operator Name Role Phone SERGIO BARRAGAN CP Unavailable Allergies No Known Allergies Problems Problem Type Condition ICD-9 Code Onset Dates Condition Status Problem Other specified disease of nail 703.8 Active Problem Acute sinusitis, unspecified 461.9 Active Problem Molluscum contagiosum 078.0 Active Problem Dermatophytosis of foot 110.4 Active Problem Dermatophytosis of hand 110.2 Active Problem Asthma 493.90 Active Problem Bunion 727.1 Active Problem Asthma, unspecified, with (acute) exacerbation 493.92 Active Problem Ingrowing nail 703.0 Active Problem Acute upper respiratory infections of unspecified site 465.9 Active Assessment Upper respiratory infection 465.9 Active Problem Pain in soft tissues of limb 729.5 Active Problem Chest pain, unspecified 786.50 Active Problem Hallux valgus (acquired) 735.0 Active Problem Other malaise and fatigue 780.79 Active Problem Dysfunction of Eustachian tube 381.81 Active Problem Other abnormal glucose 790.29 Active Problem Other general medical examination for administrative purposes V70.3 Active Medications No Known Medications Procedures Procedure Coding System Code Date VENIPUNCT, ROUTINE* CPT-4 51797 Nov 28, 2014 MYCOPLASMA IGG/IGM (44644 X2) CPT-4 56285 Nov 28, 2014 Results No Known Results Summary Purpose eClinicalWorks Submission
--- OUTSIDE RECORDS SUMMARY | 2018-06-29 20:09 | XMS REPORT ---
Author Author CHERI LIZZIE Organization [facility] Address [address] [place] [address] Care Team Providers Care Hydrochloric Manufacturing Supervisor Name Role Phone ALONZOLIZZIE Armstrong Unavailable PROBLEMS Type Condition ICD9-CM Code FNQ02-IH Code Onset Dates Condition Status SNOMED Code Problem Other obesity due to excess calories E66.09 Active 834291814 Problem Goiter E04.9 Active 6850799 Problem GERD (gastroesophageal reflux disease) K21.9 Active 390335418 Problem Elevated fasting glucose R73.01 Active 19140161 Problem Body mass index (BMI) of 32.0-32.9 in adult Z68.32 Active 468208553 Problem Mild intermittent asthma without complication J45.20 Active 353814283 ALLERGIES No Information ENCOUNTERS Encounter Location Date Diagnosis [place] [address] [address] May, [place] [address] [address] May, Goiter E04.9 and URI, acute J06.9 [place] [address] [address] May, Goiter E04.9 [facility] [address] [place] [id number] [place] [address] 15 Apr, [address] [facility] [address] [address] Apr, 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 [facility] [address] [place] [id number] [place] [address]- [address] 06 Apr, 2017 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 [place] [address] [address] Mar, Mild intermittent asthma without complication J45.20 ; GERD (gastroesophageal reflux disease) K21.9 ; Other obesity due to excess calories E66.09 ; Body mass index (BMI) of 32.0-32.9 in adult Z68.32 ; Goiter E04.9 and Nodule of neck R22.1 [facility] [address] [address] Mar, [facility] [address] [address] Feb, Cough R05 and Mild intermittent asthma without complication J45.[address] [id number] 24 May, 2015 Abdominal pain R10.9 ; PCOS (polycystic ovarian syndrome) E28.2 and Epigastric abdominal pain R10.13 [place] [address] [address] May, Abdominal pain R10.9 ; Asthma J45.909 ; GERD ( gastroesophageal reflux disease) K21.9 and UTI (urinary tract infection) N39.0 [place] [address] [address] Jan, Gastro-esophageal reflux disease without esophagitis K21.9 and Dysmenorrhea N94.[address] [id number] Nov, Upper respiratory infection 465.9 [place] [address] [address]- [address] Nov, Upper respiratory infection 465.9 and Asthma 493.[address] [id number] Oct, Bronchitis 490 and Pharyngitis 462 [place] [address] [address] Jun, [place] [address] [address]- [address] Jun, [facility] [address] [id number] [address]- [address] May, [facility] [address] [id number], [place] [address]- [address] May, [facility] [address] [facility] [id number] [id number] Apr, [facility] [place] [facility] [address] [id number], [place] [address] 2546 Apr, [facility] [address] [id number] [place] [address] 2546 July, [facility] [place] [facility] [address] [id number], [place] [address] 2546 July, [facility] [address] [facility] [id number][place] [address]- 25[address] May, [facility] [place] [facility] [address] [id number], [place] [address] 2546 May, [facility] [address] [id number], [place] [address]- [address] Nov, [facility] [place] [facility] [address] [id number], [place] [address]- 25[address] Nov, [facility] [address] [facility] [id number][place] [id number] Oct, [facility] [place] [facility] [address] [id number], [place] [address]- [address] Oct, [facility] [place] [facility] [address] [id number] [place] [address]- 25[address] Aug, [facility] [place] [facility] [address] [id number][place] [address]- [address] July, [facility] [place] [facility] [address] [id number], [place] [address]- [address] July, [facility] [place] [facility] [address] [id number], [place] [address]- [address] Jun, [facility] [address]00565100[place] [address]- [address] Apr, [facility] [address]00565100[place] [address]- [address] Apr, [facility] [id number][place] [id number] Mar, [facility] [place] [facility] [address] [place] [id number] [place] [address]- [address] Mar, [facility] [address] [place] [id number] [place] [address]- 86[address] Feb, [facility] [place] [facility] [address] [place] [id number] [place] [address]- [address] Feb, [facility] [address] [place] [id number] [place] [address]- [address] Feb, [facility] [address]65[address] [address]- [address] Feb, [facility] [id number] [place] [id number] Dec, [facility] [address] [place] [id number] Dec, [facility] [address]65100[place] [address]- [address] Dec, [facility] [place] [facility] [address]00565100[place] [address]- 47[address] Dec, [facility] [address]65[place] [id number] Nov, [facility] [place] [facility] [address] [place] [id number] [address] Sep, [facility] [place] [facility] [address]65100[place] [address]- [address] July, [facility] [place] [facility] [address]65100[place] [address] May, [facility] [address] [facility] [id number] [address] Mar, [facility] [address] [facility] [id number] [address] Nov, [facility] [address] [facility] [id number][place] [address] Oct, [facility] [address] [facility] [id number][place] [address] Mar, [facility] [address] [facility] [id number][place] [address] Feb, [facility] [address]00565100[place] [address] Dec, [facility] [address]00565100[place] [address] Dec, [facility] [address]00565100[place] [address] Nov, [facility] [address]00565[address] [address] Dec, [facility] [address]00565100[place], [place] [address] July, [facility] [address] [place] [address] [id number], [place] [address] Dec, IMMUNIZATIONS No Known Immunizations SOCIAL HISTORY Never Assessed REASON FOR VISIT Ultrasound Order PLAN OF CARE VITAL SIGNS MEDICATIONS Unknown Medications RESULTS Name Result Date Reference Range Ultrasound : Thyroid 2017-05-13 PROCEDURES No Known procedures INSTRUCTIONS MEDICATIONS ADMINISTERED No Known Medications MEDICAL (GENERAL) HISTORY Type Description Date Medical History asthma Hospitalization History pneumonia x 2 as
--- OUTSIDE RECORDS SUMMARY | 2018-06-29 20:09 | XMS REPORT ---
Author Author SERGIO BARRAGAN [facility] eClinical[employer] Address Unknown Phone Unavailable Care Team Providers Care Data Warehouse Manager Name Role Phone SERGIO BARRAGAN CP Unavailable Allergies, Adverse Reactions, Alerts Substance [...] in soft tissues of limb 729.5 Active Assessment Asthma 493.90 Active Problem Chest pain, unspecified 786.50 Active Problem Hallux valgus (acquired) 735.0 Active Problem Other malaise and fatigue 780.79 Active Problem Dysfunction of Eustachian tube 381.81 Active Problem Other abnormal glucose 790.29 Active Problem Other general medical examination for administrative purposes V70.3 Active Medications Medication Code System Code Instructions Start Date End Date Status Dosage ProAir HFA [facility] [address]-72 108 (90 Base) MCG/ACT Inhalation every 4 hrs Nov 27, 2014 2 puffs as needed PredniSONE [facility] [address]-46 10 MG Orally Twice a day Nov 27, 2014 Dec 02, 2014 1 tablet with food or milk Azithromycin [facility] [address]-33 250 MG Orally Once a day Nov 27, 2014 Dec 02, 2014 2 tablets on the first day, then 1 tablet daily for 4 days Procedures Procedure Coding System Code Date Office Visit, Est Pt., Level 3 CPT-4 41571 Nov 27, 2014 Vital Signs Date/Time: Nov 27, 2014 Temperature 97.7 F BMIPercentile 91.71 % Weight 176.4 lbs Height 67 in BMI 27.63 Index Blood Pressure Diastolic 72 mmHg Blood Pressure Systolic 116 mmHg Cardiac Monitoring Heart Rate 84 bpm Wt Percentile 95.05 % Ht Percentile 86.66 % Results No Known Results Summary Purpose eClinicalWorks Submission
--- OUTSIDE RECORDS SUMMARY | 2018-06-29 20:09 | XMS REPORT ---
Author Author CHERI LIZZIE Organization [facility] Address [address] [place] [address] Care Team Providers Care Tugboat Operator Name Role Phone ALONZOLIZZIE Armstrong Unavailable PROBLEMS Type Condition ICD9-CM Code [id number] Code Onset Dates Condition Status SNOMED Code Problem Other obesity due to excess calories E66.09 Active 567837977 Problem Goiter E04.9 Active 1450629 Problem GERD (gastroesophageal reflux disease) K21.9 Active 205268488 Problem Elevated fasting glucose R73.01 Active 04638247 Problem Body mass index (BMI) of 32.0-32.9 in adult Z68.32 Active 276051964 Problem Mild intermittent asthma without complication J45.20 Active 032466766 ALLERGIES No Information ENCOUNTERS Encounter Location Date Diagnosis [place] [address] [address] May, [place] [address] [address] May, Goiter E04.9 and URI, acute J06.9 [place] [address] [address] May, Goiter E04.9 [facility] [address] [place] [id number] [place] [address] 15 Apr, 2017 Goiter E04.9 [facility] [address] [address] Apr, 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 [facility] [address] [place] [id number] [place] [address]- 2110 06 Apr, 2017 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 [place] [address] [address] Mar, Mild intermittent asthma without complication J45.20 ; GERD (gastroesophageal reflux disease) K21.9 ; Other obesity due to excess calories E66.09 ; Body mass index (BMI) of 32.0-32.9 in adult Z68.32 ; Goiter E04.9 and Nodule of neck R22.1 [facility] [address] [address] Mar, [facility] [address] [address] Feb, Cough R05 and Mild intermittent asthma without complication J45.[address] [id number] 24 May, 2015 Abdominal pain R10.9 ; PCOS (polycystic ovarian syndrome) E28.2 and Epigastric abdominal pain R10.13 [place] [address] [address] May, Abdominal pain R10.9 ; Asthma J45.909 ; GERD ( gastroesophageal reflux disease) K21.9 and UTI (urinary tract infection) N39.0 [place] [address] [address]- [address] Jan, Gastro-esophageal reflux disease without esophagitis K21.9 and Dysmenorrhea N94.[address] [id number] Nov, Upper respiratory infection 465.9 [place] [address] [address] Nov, Upper respiratory infection 465.9 and Asthma 493.[address] [id number] Oct, Bronchitis 490 and Pharyngitis 462 [place] [address] [address] Jun, [place] [address] [address]- [address] Jun, [facility] [address] [id number] [place] [address] May, [facility] [address] [id number] [place] [address] May, [facility] [address] [facility] [id number] [id number] Apr, [facility] [place] [facility] [address] [id number] [place] [address] 2546 Apr, [facility] [address] [id number] [place] [address] 2546 July, [facility] [place] [facility] [address] [id number] [place] [address] 2546 July, [facility] [address] [facility] [id number] [place] [address]- 25[address] May, [facility] [place] [facility] [address] [id number] [place] [address] 2546 May, [facility] [address] [id number] [place] [address] Nov, [facility] [place] [facility] [address] [id number] [place] [address] Nov, [facility] [address] [facility] [id number][place] [id number] Oct, [facility] [place] [facility] [address] [id number] [place] [address]- 25[address] Oct, [facility] [place] [facility] [address] [id number] [place] [address] Aug, [facility] [place] [facility] [address] [id number] [place] [address] July, [facility] [place] [facility] [address] [id number] [place] [address] 25[address] July, [facility] [place] [facility] [address] [id number] [place] [address] 7[address] Jun, [facility] [id number] [address] Apr, [facility] [id number] [address] Apr, [facility] [id number][place] [id number] Mar, [facility] [place] [facility] [address] [place] [id number] [place] [address]- 7[address] Mar, [facility] [address] [place] [id number] [place] [address]- [address] Feb, [facility] [place] [facility] [address] [place] [id number] [place] [address]- 9191 Feb, [facility] [address] [place] [address] [id number] [place] [address]- 3691 Feb, [facility] [id number] [address] 8[address] Feb, [facility] [id number] [place] [id number] Dec, [facility] [id number] [place] [id number] Dec, [facility] [id number] [address] Dec, [facility] [place] [facility] [id number] [address]- 3[address] Dec, [facility] [address]65[address] [id number] Nov, [facility] [place] [facility] [address] [place] [id number] [address] Sep, [facility] [place] [facility] [address]65100[place] [address]- 79[address] July, [facility] [place] [facility] [address]65100[place] [address]- 6[address] May, [facility] [address] [place] [id number] [address] 47[address] Mar, [facility] [id number] [address]- [address] Nov, [facility] [address]65100[place] [address]- [address] Oct, [facility] [id number] [address]- 6[address] Mar, [facility] [id number] [address] Feb, [facility] [id number] [address]- 47[address] Dec, [facility] [id number] [address]- 30[address] Dec, [facility] [id number] [address]- 06[address] Nov, [facility] [id number] [address]- [address] Dec, [facility] [address]00565100[place] [address]- [address] July, [facility] [address] [place] [id number] [address] Dec, IMMUNIZATIONS No Known Immunizations SOCIAL HISTORY Never Assessed REASON FOR VISIT Lab (walk-in)--[facility] PLAN OF CARE VITAL SIGNS MEDICATIONS Unknown Medications RESULTS Name Result Date Reference Range THYROID PEROXIDASE (TPO) ANTIBODY 2017-05-02 THYROID PEROXIDASE ANTIBODIES 1 <9 PROCEDURES Procedure Date Ordered Result Body Site MICROSOMAL ANTIBODY May 02, 2017 VENIPUNCT, ROUTINE* May 02, 2017 INSTRUCTIONS MEDICATIONS ADMINISTERED No Known Medications MEDICAL (GENERAL) HISTORY Type Description Date Medical History asthma Hospitalization History pneumonia x 2 as infant
--- OUTSIDE RECORDS SUMMARY | 2018-06-29 20:09 | XMS REPORT ---
Author Author KEISHA QUIÑONES Organization [employer] Address Unknown Phone Unavailable Care Team Providers Care Rotary Drill Operator Helper Name Role Phone KEISHA QUIÑONES CP Unavailable Allergies, Adverse Reactions, Alerts Substance Reaction Event Type N.K.D.A. Info Not Available Non Drug Allergy Problems Problem Type Condition Code Onset Dates Condition Status Problem Other [...] infections of unspecified site 465.9 Active Assessment Gastro-esophageal reflux disease without esophagitis K21.9 Active Problem Pain in soft tissues of limb 729.5 Active Assessment Dysmenorrhea N94.6 Active Problem Chest pain, unspecified 786.50 Active Problem Hallux valgus (acquired) 735.0 Active Problem Other malaise and fatigue 780.79 Active Problem Dysfunction of Eustachian tube 381.81 Active Problem Other abnormal glucose 790.29 Active Problem Other general medical examination for administrative purposes V70.3 Active Medications Medication Code System Code Instructions Start Date End Date Status Dosage Omeprazole [facility] [address]-90 40 MG Orally Once a day Jan 28, 2015 1 capsule Procedures Procedure Coding System Code Date Office Visit, Est Pt., Level 3 CPT-4 31111 Jan 28, 2015 Vital Signs Date/Time: Jan 28, 2015 Temperature 98.7 F BMIPercentile 92.63 % Weight 181lbs 4oz lbs Height 67.2 in BMI 28.22 Index Blood Pressure Diastolic 74 mmHg Blood Pressure Systolic 110 mmHg Cardiac Monitoring Heart Rate 80 bpm Wt Percentile 95.78 % Ht Percentile 88.17 % Results No Known Results Summary Purpose [employer] Submission
--- OUTSIDE RECORDS SUMMARY | 2018-06-29 20:09 | XMS REPORT ---
Author Author CHERI LIZZIE Organization [facility] Address [address] [place] [address] Care Team Providers Care Beaming Machine Operator Name Role Phone ALONZOLIZZIE Armstrong Unavailable PROBLEMS Type Condition ICD9-CM Code [id number] Code Onset Dates Condition Status SNOMED Code Problem Other obesity due to excess calories E66.09 Active 804379418 Problem Goiter E04.9 Active 3896488 Problem GERD (gastroesophageal reflux disease) K21.9 Active 255051069 Problem Elevated fasting glucose R73.01 Active 43752981 Problem Body mass index (BMI) of 32.0-32.9 in adult Z68.32 Active 935519489 Problem Mild intermittent asthma without complication J45.20 Active 630237600 ALLERGIES No Information ENCOUNTERS Encounter Location Date Diagnosis [place] [address] [address] May, [place] [address] [address] May, Goiter E04.9 and URI, acute J06.9 [place] [address] [address] May, Goiter E04.9 [facility] [address] [place] [id number] [place] [address]- [address] 15 Apr, 2017 Goiter E04.9 [facility] [address] [address]- [address] Apr, 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 [facility] [address] [place] [id number] [place] [address]- 76[address] 06 Apr, 2017 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 [place] [address] [address] Mar, Mild intermittent asthma without complication J45.20 ; GERD (gastroesophageal reflux disease) K21.9 ; Other obesity due to excess calories E66.09 ; Body mass index (BMI) of 32.0-32.9 in adult Z68.32 ; Goiter E04.9 and Nodule of neck R22.1 [facility] [address] [address] Mar, [facility]ALK IN [facility] [address] [address] Feb, Cough R05 and Mild intermittent asthma without complication J45.[address] [id number] 24 May, 2015 Abdominal pain R10.9 ; PCOS (polycystic ovarian syndrome) E28.2 and Epigastric abdominal pain R10.13 [place] [address] [address] May, Abdominal pain R10.9 ; Asthma J45.909 ; GERD ( gastroesophageal reflux disease) K21.9 and UTI (urinary tract infection) N39.0 [place] [address] [address]- [address] Jan, Gastro-esophageal reflux disease without esophagitis K21.9 and Dysmenorrhea N94.[address] [id number] Nov, Upper respiratory infection 465.9 [place] [address] [address]- [address] Nov, Upper respiratory infection 465.9 and Asthma 493.[address] [id number] Oct, Bronchitis 490 and Pharyngitis 462 [place] [address] [address] Jun, [place] [address] [address] Jun, [facility] [address] [id number] [address]- [address] May, [facility] [address] [id number][place] [address]- 2546 May, [facility] [address] [facility] [id number] [id number] Apr, [facility] [place] [facility] [address] [id number], [place] [address] 2546 Apr, [facility] [address] [id number] [place] [address] 2546 July, [facility] [place] [facility] [address] [id number][place] [address] 2546 July, [facility] [address] [facility] [id number], [place] [address]- 2546 May, [facility] [place] [facility] [address] [id number] [address] 2546 May, [facility] [address] [id number] [address]- 3406 Nov, [facility] [place] [facility] [address] [id number][place] [address]- 2546 Nov, [facility] [address] [facility] [id number][place] [id number] Oct, [facility] [place] [facility] [address] [id number][place] [address]- 2546 Oct, [facility] [place] [facility] [address] [id number] [place] [address]- 2546 Aug, [facility] [place] [facility] [address] [id number][place] [address]- 2546 July, [facility] [place] [facility] [address] [id number][place] [address]- 2546 July, [facility] [place] [facility] [address] [id number][place] [address]- 6[address] Jun, [facility] [address]00565100[place] [address]- 28[address] Apr, [facility] [address]00565100[place] [address]- [address] Apr, [facility] [id number], [place] [id number] Mar, [facility] [place] [facility] [address] [place] [id number] [place] [address]- 5899 Mar, [facility] [address] [place] [id number] [place] [address] 64993- 1357 Feb, [facility] [place] [facility] [address] [place] [id number] [place] [address]29- 5463 Feb, [facility] [address] [place] [id number] [place] [address] 59760- 1354 Feb, [facility] [address]00565100[place] [address]- 2349 Feb, [facility] [id number] [place] [id number] Dec, [facility] [address] [place] [id number] Dec, [facility] [address]00565100[place] [address]- 6006 Dec, [facility] [place] [facility] [address]00565100[place], [place] [address]- 0666 Dec, [facility] [address]00565100[place] [address] Nov, [facility] [place] [facility] [address] [place] [id number], [place] [address]- 9286 Sep, [facility] [place] [facility] [address]00565100[place], [place] [address]- 20[address] July, [facility] [place] [facility] [address]00565100[place], [place] [address]- 9[address] May, [facility] [address] [facility] [id number][place] [address]- 2799 Mar, [facility] [address] [facility] [id number] [address]- [address] Nov, [facility] [address] [facility] [id number], [place] [address]- [address] Oct, [facility] [address] [facility] [id number], [place] [address]- [address] Mar, [facility] [address] [facility] [id number] [address]- 75[address] Feb, [facility] [address] [place] [id number] [address]- [address]12 Dec, [facility] [address]00565100[place], [place] [address]- 77[address] Dec, [facility] [address]00565100[place], [place] [address]- 2712 Nov, [facility] [address] [place] [id number] [address]- 1810 Dec, [facility] [address]00565100[place] [address]- [address] July, [facility] [address] [place] [id number], [place] [address]- 9562 Dec, IMMUNIZATIONS No Known Immunizations SOCIAL HISTORY Never Assessed REASON FOR VISIT Requests return call PLAN OF CARE VITAL SIGNS MEDICATIONS Unknown Medications RESULTS No Results PROCEDURES No Known procedures INSTRUCTIONS MEDICATIONS ADMINISTERED No Known Medications MEDICAL (GENERAL) HISTORY Type Description Date Medical History asthma Hospitalization History pneumonia x 2 as
--- OUTSIDE RECORDS SUMMARY | 2018-06-29 20:10 | XMS REPORT ---
Author Author CHERI LIZZIE Organization [facility] [place] Address [address] [place] [address] Care Team Providers Care Customer Orders Clerk Name Role Phone ALONZOLIZZIE Armstrong Unavailable PROBLEMS Type Condition ICD9-CM Code HSX02-SV Code Onset Dates Condition Status SNOMED Code Problem Other obesity due to excess calories E66.09 Active 899962955 Problem Goiter E04.9 Active 9088393 Problem GERD (gastroesophageal reflux disease) K21.9 Active 519424779 Problem Elevated fasting glucose R73.01 Active 42351965 Problem Body mass index (BMI) of 32.0-32.9 in adult Z68.32 Active 344667804 Problem Mild intermittent asthma without complication J45.20 Active 379469241 ALLERGIES No Known Allergies ENCOUNTERS Encounter Location Date Diagnosis [place] [address] [address] May, [place] [address] [address] May, Goiter E04.9 and URI, acute J06.9 [place] [address] [place] [id number] [place] [address] May, Goiter E04.9 [facility] [place] [address] [place] [id number] [place] [address]- [address] Apr, Goiter E04.9 [facility] [address] [address] Apr, 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 [place] [id number] [place] [id number] [place] [address]- [address] 06 Apr, 2017 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 [place] [address] [place] [address] Mar, Mild intermittent asthma without complication J45.20 ; GERD (gastroesophageal reflux disease) K21.9 ; Other obesity due to excess calories E66.09 ; Body mass index (BMI) of 32.0-32.9 in adult Z68.32 ; Goiter E04.9 and Nodule of neck R22.1 [facility] [place] [address] [address] Mar, [facility] [address] [address] Feb, Cough R05 and Mild intermittent asthma without complication J45.20 [facility] [address] [id number] May, Abdominal pain R10.9 ; PCOS (polycystic ovarian syndrome) E28.2 and Epigastric abdominal pain R10.[address] [address] May, Abdominal pain R10.9 ; Asthma J45.909 ; GERD ( gastroesophageal reflux disease) K21.9 and UTI (urinary tract infection) N39.[address] [address] Jan, Gastro-esophageal reflux disease without esophagitis K21.9 and Dysmenorrhea N94.[address] [id number] Nov, Upper respiratory infection 465.9 [place] [address] [address] Nov, Upper respiratory infection 465.9 and Asthma 493.[address] [id number] Oct, Bronchitis 490 and Pharyngitis 462 [place] [address] [address] Jun, [place] [address] [address] Jun, [facility] [address] [id number], [place] [address] May, [facility] [address] [id number], [place] [address] May, [facility] [address] [facility] [id number] [id number] Apr, [facility] [place] [facility] [address] [id number], [place] [address] 25[address] Apr, [facility] [place] [facility] [address] [id number], [place] [address] July, [facility] [place] [facility] [address] [id number], [place] [address] July, [facility] [address] [facility] [id number], [place] [address] May, [facility] [place] [facility] [address] [id number], [place] [address] 25[address] May, [facility] [address] [id number], [place] [address] Nov, [facility] [place] [facility] [address] [id number], [place] [address] Nov, [facility] [address] [facility] [id number] [place] [id number] Oct, [facility] [place] [facility] [address] [id number], [place] [address]46 Oct, [facility] [place] [facility] [address] [id number], [place] [address] Aug, [facility] [place] [facility] [address] [id number], [place] [address] July, [facility] [place] [facility] [address] [id number], [place] [address] 25[address] July, [facility] [place] [facility] [address]00565100[place], [place] [address] Jun, [facility] [address]00565100[place], [place] [address] Apr, [facility] [address]00565100[place], [place] [address] Apr, [facility] [id number] [place] [id number] Mar, [facility] [place] [facility] [address]65[address], [place] [address] Mar, [facility] [id number] [place] [address]- [address] Feb, [facility] [place] [facility] [address] [place] [id number], [place] [address] Feb, [facility] [id number] [place] [address]- [address] Feb, [facility] [address]65[address], [place] [address] Feb, [facility] [id number] [place] [address] Dec, [facility] [id number] [place] [id number] Dec, [facility] [address]65[address], [place] [address] Dec, [facility] [place] [facility] [address]65[address], [place] [address] Dec, [facility] [address] [place] [id number] [place] [id number] Nov, [facility] [place] [facility] [address] [id number], [place] [address] Sep, [facility] [place] [facility] [address]65[address], [place] [address]- [address] July, [facility] [place] [facility] [address]65[address], [place] [address] May, [facility] [address], [place] [address] Mar, [facility] [address]65[address], [place] [address] Nov, [facility] [address]65100[place], [place] [address]- [address] Oct, [facility] [address]65[address], [place] [address] Mar, [facility] [place] [address]65[address], [place] [address] Feb, [facility] [id number] [place] [address]- [address] Dec, [facility] [address]65[address], [place] [address] Dec, [facility] [address], [place] [address] Nov, [facility] [address], [place] [address]- [address] Dec, [facility] [address]65[address], [place] [address]- [address] July, [facility] [address] [place] [id number], [place] [address] Dec, IMMUNIZATIONS No Known Immunizations SOCIAL HISTORY Never Assessed REASON FOR VISIT Establish care visit leonardo sifuentes, Has knot on back of neck that started in December , Would like to discuss possibly having thyroid labs drawn PLAN OF CARE Activity Details Follow Up 4 Weeks Reason:follow up VITAL SIGNS Height 67.2 in 2017-04-19 Weight 208.7 lbs 2017-04-19 Temperature 98.7 degrees Fahrenheit 2017-04-19 Heart Rate 72 bpm 2017-04-19 Respiratory Rate 18 2017-04-19 Oximetry 99 % 2017-04-19 BMI 32.49 kg/m2 2017-04-19 Blood pressure systolic 118 mmHg 2017-04-19 Blood pressure diastolic 66 mmHg 2017-04-19 MEDICATIONS Medication Instructions Dosage Frequency Start Date End Date Duration Status E-Z Spacer - as directed Feb, 30 days Active ProAir HFA 108 (90 Base) MCG/ACT Inhalation every 6 hrs 2 puffs as needed 6h Feb, 30 days Active RESULTS No Results PROCEDURES Procedure Date Ordered Result Body Site MEASURE BLOOD OXYGEN LEVEL Apr 19, 2017 Hemoglobin Test Send Out 0 dollar Apr 19, 2017 VENIPUNCT, ROUTINE* Apr 19, 2017 COMPREHEN METABOLIC PANEL Apr 19, 2017 COMPLETE CBC W/AUTO DIFF WBC Apr 19, 2017 LIPID PANEL Apr 19, 2017 ASSAY THYROID STIM HORMONE Apr 19, 2017 INSTRUCTIONS MEDICATIONS ADMINISTERED No Known Medications MEDICAL (GENERAL) HISTORY Type Description Date Medical History asthma Hospitalization History pneumonia x 2 as
--- OUTSIDE RECORDS SUMMARY | 2018-06-29 20:10 | XMS REPORT ---
Author Author CHERI LIZZIE Organization [facility] Address [address] [place] [address] Care Team Providers Care Vocational Aide Name Role Phone ALONZOLIZZIE Armstrong Unavailable PROBLEMS Type Condition ICD9-CM Code BQS01-DM Code Onset Dates Condition Status SNOMED Code Problem Other obesity due to excess calories E66.09 Active 379801772 Problem Goiter E04.9 Active 4609162 Problem GERD (gastroesophageal reflux disease) K21.9 Active 952439480 Problem Elevated fasting glucose R73.01 Active 31851911 Problem Body mass index (BMI) of 32.0-32.9 in adult Z68.32 Active 661980652 Problem Mild intermittent asthma without complication J45.20 Active 151967932 ALLERGIES No Known Allergies ENCOUNTERS Encounter Location Date Diagnosis [place] [address] [address] May, [place] [address] [address] May, Goiter E04.9 and URI, acute J06.9 [place] [address] [place] [id number] [place] [address] May, Goiter E04.9 [facility] [address] [place] [id number] [place] [address]- [address] Apr, Goiter E04.9 [facility] [address] [address]- [address] Apr, 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 [place] [address] [place] [id number] [place] [address]- [address] 06 Apr, 2017 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 [place] [address] [place] [address]- [address] Mar, Mild intermittent asthma without complication J45.20 ; GERD (gastroesophageal reflux disease) K21.9 ; Other obesity due to excess calories E66.09 ; Body mass index (BMI) of 32.0-32.9 in adult Z68.32 ; Goiter E04.9 and Nodule of neck R22.1 [facility] [address] [address] Mar, [facility] [address] [address] Feb, Cough R05 and Mild intermittent asthma without complication J45.20 [facility] [address] [id number] May, Abdominal pain R10.9 ; PCOS (polycystic ovarian syndrome) E28.2 and Epigastric abdominal pain R10.[address] [address]- [address] May, Abdominal pain R10.9 ; Asthma J45.909 ; GERD ( gastroesophageal reflux disease) K21.9 and UTI (urinary tract infection) N39.[address] [address]- [address] Jan, Gastro-esophageal reflux disease without esophagitis K21.9 and Dysmenorrhea N94.[address] [id number] Nov, Upper respiratory infection 465.9 [place] [address] [address]- [address] Nov, Upper respiratory infection 465.9 and Asthma 493.[address] [id number] Oct, Bronchitis 490 and Pharyngitis 462 [place] [address] [address]- [address] Jun, [place] [address] [address]- [address] Jun, [facility] [address] [id number], [place] [address]- [address] May, [facility] [address] [id number], [place] [address]- 25[address] May, [facility] [address] [facility] [id number][place] [id number] Apr, [facility] [place] [facility] [address] [id number], [place] [address] 2546 Apr, [facility] [place] [facility] [address] [id number], [place] [address]- [address] July, [facility] [place] [facility] [address] [id number], [place] [address] 2546 July, [facility] [address] [facility] [id number], [place] [address]- 2546 May, [facility] [place] [facility] [address] [id number], [place] [address] 2546 May, [facility] [address] [id number], [place] [address]- 4[address] Nov, [facility] [place] [facility] [address] [id number], [place] [address]- 2546 Nov, [facility] [address] [facility] [id number][place] [id number] Oct, [facility] [place] [facility] [address] [id number], [place] [address] 2546 Oct, [facility] [place] [facility] [address] [id number], [place] [address]- 2546 Aug, [facility] [place] [facility] [address] [id number], [place] [address]- 2546 July, [facility] [place] [facility] [address] [id number], [place] [address]- 2546 July, [facility] [place] [facility] [address]65[address], [place] [address]- 2246 Jun, [facility] [address]65[address], [place] [address]- 1366 Apr, [facility] [address]65[address], [place] [address]- 6[address] Apr, [facility] [id number] [id number] Mar, [facility] [place] [facility] [address]65[address], [place] [address]- 0876 Mar, [facility] [address] [place] [address]- 0833 Feb, [facility] [place] [facility] [address] [place] [id number], [place] [address]- [address] Feb, [facility] [address] [place] [address]- 6088 Feb, [facility] [address]65[address], [place] [address]- 5169 Feb, [facility] [id number], [place] [address] Dec, [facility] [id number] [place] [id number] Dec, [facility] [address]65[address], [place] [address]- [address] Dec, [facility] [place] [facility] [address]65[address], [place] [address]- 6[address] Dec, [facility] [address] [place] [id number] [id number] Nov, [facility] [place] [facility] [address] [place] [id number], [place] [address]- [address] Sep, [facility] [place] [facility] [address]65[address], [place] [address]- 5[address] July, [facility] [place] [facility] [address]65[address], [place] [address]- [address] May, [facility] [address]00565[address], [place] [address]- 9[address] Mar, [facility] [address] [facility] [id number], [place] [address] 2546 Nov, [facility] [address]65[address], [place] [address] 2546 Oct, [facility] [address] [facility] [id number], [place] [address]- [address] Mar, [facility] [address]65[address], [place] [address]- [address] Feb, [facility] [address] [place] [id number] [place] [address]- 9576 Dec, [facility] [address]65[address], [place] [address]- 3666 Dec, [facility] [address]65[address], [place] [address]- 9947 Nov, [facility] [address]65[address], [place] [address]- 4185 Dec, [facility] [address]65[address], [place] [address]- [address] July, [facility] [address]00565100[place], [place] [address]- 9[address] Dec, IMMUNIZATIONS No Known Immunizations SOCIAL HISTORY Never Assessed REASON FOR VISIT PMH obtained. TGrashel WAGNER PLAN OF CARE VITAL SIGNS MEDICATIONS Medication Instructions Dosage Frequency Start Date End Date Duration Status E-Z Spacer - as directed Feb, 30 days Active ProAir HFA 108 (90 Base) MCG/ACT Inhalation every 6 hrs 2 puffs as needed 6h Feb, 30 days Active Omeprazole 40 MG Orally Once a day 1 capsule 24h 10 Jan, 2015 Not- Taking RESULTS No Results PROCEDURES No Known procedures INSTRUCTIONS MEDICATIONS ADMINISTERED No Known Medications MEDICAL (GENERAL) HISTORY Type Description Date Medical History asthma Hospitalization History pneumonia x 2 as
--- OUTSIDE RECORDS SUMMARY | 2018-06-29 20:11 | XMS REPORT | Continuity of Care Document ---
Author Organization Unknown Address Unknown Allergies Active Description Code Type Severity Reaction Onset Reported/Identified Relationship to Patient Clinical Status Yes No Known Drug Allergies [id number] Drug Allergy Mild N/A 08/12/2008 Medications There is no data. Problems Date Dx Coded Attending Type Code Diagnosis Diagnosed By 01/01/2008 034.0 Strep Throat 01/01/2008 528.9 Mouth Pain 01/01/2008 780.60 Fever, Unspecified 01/01/2008 TYRESE GAMING DO 034.0 Strep Throat 01/01/2008 TYRESE GAMING DO 528.9 Mouth Pain 01/01/2008 TYRESE GAMING DO 780.60 Fever, Unspecified 01/01/2008 034.0 Strep Throat 01/01/2008 528.9 Mouth Pain 01/01/2008 780.60 Fever, Unspecified 01/01/2008 034.0 Strep Throat 01/01/2008 528.9 Mouth Pain 01/01/2008 780.60 Fever, Unspecified 01/01/2008 TYRESE GAMING DO 034.0 Strep Throat 01/01/2008 TYRESE GAMING DO 528.9 Mouth Pain 01/01/2008 TYRESE GAMING DO 780.60 Fever, Unspecified 01/01/2008 034.0 Strep Throat 01/01/2008 528.9 Mouth Pain 01/01/2008 780.60 Fever, Unspecified 01/01/2008 034.0 Strep Throat 01/01/2008 528.9 Mouth Pain 01/01/2008 780.60 Fever, Unspecified 01/01/2008 034.0 Strep Throat 01/01/2008 528.9 Mouth Pain 01/01/2008 780.60 Fever, Unspecified 01/01/2008 034.0 Strep Throat 01/01/2008 528.9 Mouth Pain 01/01/2008 780.60 Fever, Unspecified 01/01/2008 034.0 Strep Throat 01/01/2008 528.9 Mouth Pain 01/01/2008 780.60 Fever, Unspecified 01/01/2008 034.0 Strep Throat 01/01/2008 528.9 Mouth Pain 01/01/2008 780.60 Fever, Unspecified 01/01/2008 TYRESE GAMING DO 034.0 Strep Throat 01/01/2008 TYRESE GAMING DO K 528.9 Mouth Pain 01/01/2008 TYRESE GAMING DO K 780.60 Fever, Unspecified 01/01/2008 RAJOTTE HONEYCOMB DECAPPER, CATINA A 034.0 Strep Throat 01/01/2008 RAJOTTE HONEYCOMB DECAPPER, CATINA A 528.9 Mouth Pain 01/01/2008 RAJOTTE HONEYCOMB DECAPPER, CATINA A 780.60 Fever, Unspecified 01/16/2008 079.99 Viral Syndrome 01/16/2008 786.2 Cough 01/16/2008 789.00 Colic Infantile 01/16/2008 TYRESE GAMING DO 079.99 Viral Syndrome 01/16/2008 TYRESE GAMING DO 786.2 Cough 01/16/2008 TYRESE GAMING DO 789.00 Colic Infantile 01/16/2008 079.99 Viral Syndrome 01/16/2008 786.2 Cough 01/16/2008 789.00 Colic Infantile 01/16/2008 079.99 Viral Syndrome 01/16/2008 786.2 Cough 01/16/2008 789.00 Colic Infantile 01/16/2008 TYRESE GAMING DO 079.99 Viral Syndrome 01/16/2008 TYRESE GAMING DO 786.2 Cough 01/16/2008 TYRESE GAMING DO 789.00 Colic Infantile 01/16/2008 079.99 Viral Syndrome 01/16/2008 786.2 Cough 01/16/2008 789.00 Colic Infantile 01/16/2008 079.99 Viral Syndrome 01/16/2008 786.2 Cough 01/16/2008 789.00 Colic Infantile 01/16/2008 079.99 Viral Syndrome 01/16/2008 786.2 Cough 01/16/2008 789.00 Colic Infantile 01/16/2008 079.99 Viral Syndrome 01/16/2008 786.2 Cough 01/16/2008 789.00 Colic Infantile 01/16/2008 079.99 Viral Syndrome 01/16/2008 786.2 Cough 01/16/2008 789.00 Colic Infantile 01/16/2008 079.99 Viral Syndrome 01/16/2008 786.2 Cough 01/16/2008 789.00 Colic Infantile 01/16/2008 GAMING DOEDIEA K 079.99 Viral Syndrome 01/16/2008 GAMING DO, TYRESE K 786.2 Cough 01/16/2008 GAMING DO, TYRESE K 789.00 Colic Infantile 01/16/2008 CATINA AGUSTIN APRN A 079.99 Viral Syndrome 01/16/2008 VAMSI HAWTHORNE CATINA A 786.2 Cough 01/16/2008 OMAE HONEYCOMB DECAPPER, CATINA A 789.00 Colic Infantile 04/15/2008 691.8 Dermatitis Atopic Eczema 04/15/2008 TYRESE GAMING DO K 691.8 Dermatitis Atopic Eczema 04/15/2008 691.8 Dermatitis Atopic Eczema 04/15/2008 691.8 Dermatitis Atopic Eczema 04/15/2008 TYRESE GAMING DO K 691.8 Dermatitis Atopic Eczema 04/15/2008 691.8 Dermatitis Atopic Eczema 04/15/2008 691.8 Dermatitis Atopic Eczema 04/15/2008 691.8 Dermatitis Atopic Eczema 04/15/2008 691.8 Dermatitis Atopic Eczema 04/15/2008 691.8 Dermatitis Atopic Eczema 04/15/2008 691.8 Dermatitis Atopic Eczema 04/15/2008 TYRESE GAMING DO K 691.8 Dermatitis Atopic Eczema 04/15/2008 CATINA AGUSTIN APRN A 691.8 Dermatitis Atopic Eczema 07/30/2008 078.19 Warts Hand 07/30/2008 TYRESE GAMING DO K 078.19 Warts Hand 07/30/2008 078.19 Warts Hand 07/30/2008 078.19 Warts Hand 07/30/2008 GAMING EDIE BANDAA K 078.19 Warts Hand 07/30/2008 078.19 Warts Hand 07/30/2008 078.19 Warts Hand 07/30/2008 078.19 Warts Hand 07/30/2008 078.19 Warts Hand 07/30/2008 078.19 Warts Hand 07/30/2008 078.19 Warts Hand 07/30/2008 TYRESE GAMING DO K 078.19 Warts Hand 07/30/2008 CATINA AGUSTIN APRN A 078.19 Warts Hand 11/04/2008 V05.3 Hepatitis Viral/all 11/04/2008 V05.4 Varicella, Chickenpox 11/04/2008 V06.5 Dt, Tetanus- diphtheria [td] ,tdap 11/04/2008 TYRESE GAMING DO V05.3 Hepatitis Viral/all 11/04/2008 TYRESE GAMING DO V05.4 Varicella, Chickenpox 11/04/2008 TYRESE GAMING DO V06.5 Dt, Tetanus-diphtheria [td] ,tdap 11/04/2008 V05.3 Hepatitis Viral/all 11/04/2008 V05.4 Varicella, Chickenpox 11/04/2008 V06.5 Dt, Tetanus- diphtheria [td] ,tdap 11/04/2008 V05.3 Hepatitis Viral/all 11/04/2008 V05.4 Varicella, Chickenpox 11/04/2008 V06.5 Dt, Tetanus- diphtheria [td] ,tdap 11/04/2008 TYRESE GAMING DO V05.3 Hepatitis Viral/all 11/04/2008 TYRESE GAMING DO V05.4 Varicella, Chickenpox 11/04/2008 TYRESE GAMING DO V06.5 Dt, Tetanus-diphtheria [td] ,tdap 11/04/2008 V05.3 Hepatitis Viral/all 11/04/2008 V05.4 Varicella, Chickenpox 11/04/2008 V06.5 Dt, Tetanus- diphtheria [td] ,tdap 11/04/2008 V05.3 Hepatitis Viral/all 11/04/2008 V05.4 Varicella, Chickenpox 11/04/2008 V06.5 Dt, Tetanus- diphtheria [td] ,tdap 11/04/2008 V05.3 Hepatitis Viral/all 11/04/2008 V05.4 Varicella, Chickenpox 11/04/2008 V06.5 Dt, Tetanus- diphtheria [td] ,tdap 11/04/2008 V05.3 Hepatitis Viral/all 11/04/2008 V05.4 Varicella, Chickenpox 11/04/2008 V06.5 Dt, Tetanus- diphtheria [td] ,tdap 11/04/2008 V05.3 Hepatitis Viral/all 11/04/2008 V05.4 Varicella, Chickenpox 11/04/2008 V06.5 Dt, Tetanus- diphtheria [td] ,tdap 11/04/2008 V05.3 Hepatitis Viral/all 11/04/2008 V05.4 Varicella, Chickenpox 11/04/2008 V06.5 Dt, Tetanus- diphtheria [td] ,tdap 11/04/2008 TYRESE GAMING DO V05.3 Hepatitis Viral/all 11/04/2008 TYRESE GAMING DO V05.4 Varicella, Chickenpox 11/04/2008 TYRESE GAMING DO V06.5 Dt, Tetanus-diphtheria [td] ,tdap 11/04/2008 RAJOTTE HONEYCOMB DECAPPER, CATINA A V05.3 Hepatitis Viral/all 11/04/2008 RAJOTTE HONEYCOMB DECAPPER, CATINA A V05.4 Varicella, Chickenpox 11/04/2008 RAJOTTE HONEYCOMB DECAPPER CATINA A V06.5 Dt, Tetanus-diphtheria [td] ,tdap 01/13/2009 477.9 Allergic Rhinitis 01/13/2009 TYRESE GAMING DO 477.9 Allergic Rhinitis 01/13/2009 477.9 Allergic Rhinitis 01/13/2009 477.9 Allergic Rhinitis 01/13/2009 TYRESE GAMING DO 477.9 Allergic Rhinitis 01/13/2009 477.9 Allergic Rhinitis 01/13/2009 477.9 Allergic Rhinitis 01/13/2009 477.9 Allergic Rhinitis 01/13/2009 477.9 Allergic Rhinitis 01/13/2009 477.9 Allergic Rhinitis 01/13/2009 477.9 Allergic Rhinitis 01/13/2009 TYRESE GAMING DO 477.9 Allergic Rhinitis 01/13/2009 VAMSI HAWTHORNE CATINA A 477.9 Allergic Rhinitis 09/17/2009 701.9 Unspecified Hypertrophic And Atrophic Conditions Of Skin 09/17/2009 TYRESE GAMING DO 701.9 Unspecified Hypertrophic And Atrophic Conditions Of Skin 09/17/2009 701.9 Unspecified Hypertrophic And Atrophic Conditions Of Skin 09/17/2009 701.9 Unspecified Hypertrophic And Atrophic Conditions Of Skin 09/17/2009 TYRESE GAMING DO 701.9 Unspecified Hypertrophic And Atrophic Conditions Of Skin 09/17/2009 701.9 Unspecified Hypertrophic And Atrophic Conditions Of Skin 09/17/2009 701.9 Unspecified Hypertrophic And Atrophic Conditions Of Skin 09/17/2009 701.9 Unspecified Hypertrophic And Atrophic Conditions Of Skin 09/17/2009 701.9 Unspecified Hypertrophic And Atrophic Conditions Of Skin 09/17/2009 701.9 Unspecified Hypertrophic And Atrophic Conditions Of Skin 09/17/2009 701.9 Unspecified Hypertrophic And Atrophic Conditions Of Skin 09/17/2009 TYRESE GAMING DO 701.9 Unspecified Hypertrophic And Atrophic Conditions Of Skin 09/17/2009 CATINA AGUSTIN APRN 701.9 Unspecified Hypertrophic And Atrophic Conditions Of Skin 12/05/2009 493.90 ASTHMA, UNSPECIFIED, UNSPECIFIED 12/05/2009 TYRESE GAMING DO 493.90 ASTHMA, UNSPECIFIED, UNSPECIFIED 12/05/2009 493.90 ASTHMA, UNSPECIFIED, UNSPECIFIED 12/05/2009 493.90 ASTHMA, UNSPECIFIED, UNSPECIFIED 12/05/2009 TYRESE GAMING DO 493.90 ASTHMA, UNSPECIFIED, UNSPECIFIED 12/05/2009 493.90 ASTHMA, UNSPECIFIED, UNSPECIFIED 12/05/2009 493.90 ASTHMA, UNSPECIFIED, UNSPECIFIED 12/05/2009 493.90 ASTHMA, UNSPECIFIED, UNSPECIFIED 12/05/2009 493.90 ASTHMA, UNSPECIFIED, UNSPECIFIED 12/05/2009 493.90 ASTHMA, UNSPECIFIED, UNSPECIFIED 12/05/2009 493.90 ASTHMA, UNSPECIFIED, UNSPECIFIED 12/05/2009 TYRESE GAMING DO 493.90 ASTHMA, UNSPECIFIED, UNSPECIFIED 12/05/2009 CATINA AGUSTIN APRN 493.90 ASTHMA, UNSPECIFIED, UNSPECIFIED 12/11/2009 388.70 Otalgia, Unspecified 12/11/2009 TYRESE GAMING DO 388.70 Otalgia, Unspecified 12/11/2009 388.70 Otalgia, Unspecified 12/11/2009 388.70 Otalgia, Unspecified 12/11/2009 TYRESE GAMING DO 388.70 Otalgia, Unspecified 12/11/2009 388.70 Otalgia, Unspecified 12/11/2009 388.70 Otalgia, Unspecified 12/11/2009 388.70 Otalgia, Unspecified 12/11/2009 388.70 Otalgia, Unspecified 12/11/2009 388.70 Otalgia, Unspecified 12/11/2009 388.70 Otalgia, Unspecified 12/11/2009 GAMING DO, TYRESE K 388.70 Otalgia, Unspecified 12/11/2009 CATINA AGUSTIN APRN A 388.70 Otalgia, Unspecified 02/19/2010 078.0 Molluscum Contagiosum 02/19/2010 GAMING DO, TYRESE K 078.0 Molluscum Contagiosum 02/19/2010 078.0 Molluscum Contagiosum 02/19/2010 078.0 Molluscum Contagiosum 02/19/2010 GAMNIG DO, TYRESE K 078.0 Molluscum Contagiosum 02/19/2010 078.0 Molluscum Contagiosum 02/19/2010 078.0 Molluscum Contagiosum 02/19/2010 078.0 Molluscum Contagiosum 02/19/2010 078.0 Molluscum Contagiosum 02/19/2010 078.0 Molluscum Contagiosum 02/19/2010 078.0 Molluscum Contagiosum 02/19/2010 GAMING DO, TYRESE K 078.0 Molluscum Contagiosum 02/19/2010 CATINA AGUSTIN APRN 078.0 Molluscum Contagiosum 03/27/2010 703.0 Ingrown Toenail (infection) 03/27/2010 EDIE GAMING DOA K 703.0 Ingrown Toenail (infection) 03/27/2010 703.0 Ingrown Toenail (infection) 03/27/2010 703.0 Ingrown Toenail (infection) 03/27/2010 MEKHI DO, TYRESE K 703.0 Ingrown Toenail (infection) 03/27/2010 703.0 Ingrown Toenail (infection) 03/27/2010 703.0 Ingrown Toenail (infection) 03/27/2010 703.0 Ingrown Toenail (infection) 03/27/2010 703.0 Ingrown Toenail (infection) 03/27/2010 703.0 Ingrown Toenail (infection) 03/27/2010 703.0 Ingrown Toenail (infection) 03/27/2010 TYRESE GAIMNG DO K 703.0 Ingrown Toenail (infection) 03/27/2010 VAMSI HAWTHORNE CATINA A 703.0 Ingrown Toenail (infection) 04/07/2010 789.03 Abdominal Pain Right Lower Quadrant 04/07/2010 TYRESE GAMING DO 789.03 Abdominal Pain Right Lower Quadrant 04/07/2010 789.03 Abdominal Pain Right Lower Quadrant 04/07/2010 789.03 Abdominal Pain Right Lower Quadrant 04/07/2010 TYRESE GAMING DO 789.03 Abdominal Pain Right Lower Quadrant 04/07/2010 789.03 Abdominal Pain Right Lower Quadrant 04/07/2010 789.03 Abdominal Pain Right Lower Quadrant 04/07/2010 789.03 Abdominal Pain Right Lower Quadrant 04/07/2010 789.03 Abdominal Pain Right Lower Quadrant 04/07/2010 789.03 Abdominal Pain Right Lower Quadrant 04/07/2010 789.03 Abdominal Pain Right Lower Quadrant 04/07/2010 TYRESE GAMING DO 789.03 Abdominal Pain Right Lower Quadrant 04/07/2010 CATINA AGUSTIN APRN 789.03 Abdominal Pain Right Lower Quadrant 05/13/2010 Ot 914.0 05/13/2010 Ot 959.4 05/13/2010 Ot E000.8 05/13/2010 Ot E849.0 05/13/2010 Ot E917.9 05/15/2010 914.7 Superficial Foreign Body (splinter) Of Hand(s) Except Finger(s) Alone Without Major Open Wound Infected 05/15/2010 E849.0 Home Accidents 05/15/2010 TYRESE GAMING DO 914.7 Superficial Foreign Body (splinter) Of Hand(s) Except Finger(s) Alone Without Major Open Wound Infected 05/15/2010 TYRESE GAMING DO E849.0 Home Accidents 05/15/2010 914.7 Superficial Foreign Body (splinter) Of Hand(s) Except Finger(s) Alone Without Major Open Wound Infected 05/15/2010 E849.0 Home Accidents 05/15/2010 914.7 Superficial Foreign Body (splinter) Of Hand(s) Except Finger(s) Alone Without Major Open Wound Infected 05/15/2010 E849.0 Home Accidents 05/15/2010 TYRESE GAMING DO 914.7 Superficial Foreign Body (splinter) Of Hand(s) Except Finger(s) Alone Without Major Open Wound Infected 05/15/2010 TYRESE GAMING DO E849.0 Home Accidents 05/15/2010 914.7 Superficial Foreign Body (splinter) Of Hand(s) Except Finger(s) Alone Without Major Open Wound Infected 05/15/2010 E849.0 Home Accidents 05/15/2010 914.7 Superficial Foreign Body (splinter) Of Hand(s) Except Finger(s) Alone Without Major Open Wound Infected 05/15/2010 E849.0 Home Accidents 05/15/2010 914.7 Superficial Foreign Body (splinter) Of Hand(s) Except Finger(s) Alone Without Major Open Wound Infected 05/15/2010 E849.0 Home Accidents 05/15/2010 914.7 Superficial Foreign Body (splinter) Of Hand(s) Except Finger(s) Alone Without Major Open Wound Infected 05/15/2010 E849.0 Home Accidents 05/15/2010 914.7 Superficial Foreign Body (splinter) Of Hand(s) Except Finger(s) Alone Without Major Open Wound Infected 05/15/2010 E849.0 Home Accidents 05/15/2010 914.7 Superficial Foreign Body (splinter) Of Hand(s) Except Finger(s) Alone Without Major Open Wound Infected 05/15/2010 E849.0 Home Accidents 05/15/2010 TYRESE GAMING DO 914.7 Superficial Foreign Body (splinter) Of Hand(s) Except Finger(s) Alone Without Major Open Wound Infected 05/15/2010 TYRESE GAMING DO E849.0 Home Accidents 05/15/2010 CATINA AGUSTIN APRN 914.7 Superficial Foreign Body (splinter) Of Hand(s) Except Finger(s) Alone Without Major Open Wound Infected 05/15/2010 CATINA AGUSTIN APRN E849.0 Home Accidents 07/24/2010 Ot 465.9 07/24/2010 Ot 466.0 07/24/2010 Ot 786.2 11/05/2010 706.1 ACNE 11/05/2010 TYRESE GAMING DO 706.1 ACNE 11/05/2010 706.1 ACNE 11/05/2010 706.1 ACNE 11/05/2010 TYRESE GAMING DO 706.1 ACNE 11/05/2010 706.1 ACNE 11/05/2010 706.1 ACNE 11/05/2010 706.1 ACNE 11/05/2010 706.1 ACNE 11/05/2010 706.1 ACNE 11/05/2010 706.1 ACNE 11/05/2010 TYRESE GAMING DO 706.1 ACNE 11/05/2010 CATINA AGUSTIN APRN 706.1 ACNE 12/01/2010 Ot 789.01 12/07/2010 V05.3 Hep A (ped/ adol 2-dose) Dx 12/07/2010 V20.2 WELL CHILD 12/07/2010 TYRESE GAMING DO V05.3 Hep A (ped/adol 2-dose) Dx 12/07/2010 TYRESE GAMING DO V20.2 WELL CHILD 12/07/2010 V05.3 Hep A (ped/ adol 2-dose) Dx 12/07/2010 V20.2 WELL CHILD 12/07/2010 V05.3 Hep A (ped/ adol 2-dose) Dx 12/07/2010 V20.2 WELL CHILD 12/07/2010 TYRESE GAMING DO V05.3 Hep A (ped/adol 2-dose) Dx 12/07/2010 TYRESE GAMING DO V20.2 WELL CHILD 12/07/2010 V05.3 Hep A (ped/ adol 2-dose) Dx 12/07/2010 V20.2 WELL CHILD 12/07/2010 V05.3 Hep A (ped/ adol 2-dose) Dx 12/07/2010 V20.2 WELL CHILD 12/07/2010 V05.3 Hep A (ped/ adol 2-dose) Dx 12/07/2010 V20.2 WELL CHILD 12/07/2010 V05.3 Hep A (ped/ adol 2-dose) Dx 12/07/2010 V20.2 WELL CHILD 12/07/2010 V05.3 Hep A (ped/ adol 2-dose) Dx 12/07/2010 V20.2 WELL CHILD 12/07/2010 V05.3 Hep A (ped/ adol 2-dose) Dx 12/07/2010 V20.2 WELL CHILD 12/07/2010 TYRESE GAMING DO V05.3 Hep A (ped/adol 2-dose) Dx 12/07/2010 TYRESE GAMING DO V20.2 WELL CHILD 12/07/2010 CATINA AGUSTIN APRN V05.3 Hep A (ped/adol 2-dose) Dx 12/07/2010 CATINA AGUSTIN APRN V20.2 WELL CHILD 12/14/2010 681.11 Onychia And Paronychia Of Toe 12/14/2010 703.0 Ingrown Toenail (infection) 12/14/2010 TYRESE GAMING DO 681.11 Onychia And Paronychia Of Toe 12/14/2010 TYRESE GAMING DO 703.0 Ingrown Toenail (infection) 12/14/2010 681.11 Onychia And Paronychia Of Toe 12/14/2010 703.0 Ingrown Toenail (infection) 12/14/2010 681.11 Onychia And Paronychia Of Toe 12/14/2010 703.0 Ingrown Toenail (infection) 12/14/2010 TYRESE GAMING DO 681.11 Onychia And Paronychia Of Toe 12/14/2010 TYRESE GAMING DO 703.0 Ingrown Toenail (infection) 12/14/2010 681.11 Onychia And Paronychia Of Toe 12/14/2010 703.0 Ingrown Toenail (infection) 12/14/2010 681.11 Onychia And Paronychia Of Toe 12/14/2010 703.0 Ingrown Toenail (infection) 12/14/2010 681.11 Onychia And Paronychia Of Toe 12/14/2010 703.0 Ingrown Toenail (infection) 12/14/2010 681.11 Onychia And Paronychia Of Toe 12/14/2010 703.0 Ingrown Toenail (infection) 12/14/2010 681.11 Onychia And Paronychia Of Toe 12/14/2010 703.0 Ingrown Toenail (infection) 12/14/2010 681.11 Onychia And Paronychia Of Toe 12/14/2010 703.0 Ingrown Toenail (infection) 12/14/2010 GAMING DO, TYRESE K 681.11 Onychia And Paronychia Of Toe 12/14/2010 GAMING DO, TYRESE K 703.0 Ingrown Toenail (infection) 12/14/2010 CATINA AGUSTIN APRN A 681.11 Onychia And Paronychia Of Toe 12/14/2010 CATINA AGUSTIN APRN A 703.0 Ingrown Toenail (infection) 05/26/2011 465.9 Upper Respiratory Infection 05/26/2011 727.1 Bunion 05/26/2011 GAMING DOTYRESE K 465.9 Upper Respiratory Infection 05/26/2011 GAMING DOTYRESE K 727.1 Bunion 05/26/2011 465.9 Upper Respiratory Infection 05/26/2011 727.1 Bunion 05/26/2011 465.9 Upper Respiratory Infection 05/26/2011 727.1 Bunion 05/26/2011 GAMING DOTYRESE K 465.9 Upper Respiratory Infection 05/26/2011 GAMING DOTYRESE K 727.1 Bunion 05/26/2011 465.9 Upper Respiratory Infection 05/26/2011 727.1 Bunion 05/26/2011 465.9 Upper Respiratory Infection 05/26/2011 727.1 Bunion 05/26/2011 465.9 Upper Respiratory Infection 05/26/2011 727.1 Bunion 05/26/2011 465.9 Upper Respiratory Infection 05/26/2011 727.1 Bunion 05/26/2011 465.9 Upper Respiratory Infection 05/26/2011 727.1 Bunion 05/26/2011 465.9 Upper Respiratory Infection 05/26/2011 727.1 Bunion 05/26/2011 GAMING DOTYRESE K 465.9 Upper Respiratory Infection 05/26/2011 GAMING DOTYRESE K 727.1 Bunion 05/26/2011 CATINA AGUSTIN APRN A 465.9 Upper Respiratory Infection 05/26/2011 CATINA AGUSTIN APRN A 727.1 Bunion 08/13/2011 735.0 HALLUX VALGUS (ACQUIRED) 08/13/2011 GAMING DOTYRESE K 735.0 HALLUX VALGUS (ACQUIRED) 08/13/2011 735.0 HALLUX VALGUS (ACQUIRED) 08/13/2011 735.0 HALLUX VALGUS (ACQUIRED) 08/13/2011 TYRESE GAMING DO 735.0 HALLUX VALGUS (ACQUIRED) 08/13/2011 735.0 HALLUX VALGUS (ACQUIRED) 08/13/2011 735.0 HALLUX VALGUS (ACQUIRED) 08/13/2011 735.0 HALLUX VALGUS (ACQUIRED) 08/13/2011 735.0 HALLUX VALGUS (ACQUIRED) 08/13/2011 735.0 HALLUX VALGUS (ACQUIRED) 08/13/2011 735.0 HALLUX VALGUS (ACQUIRED) 08/13/2011 TYRESE GAMING DO 735.0 HALLUX VALGUS (ACQUIRED) 08/13/2011 CATINA AGUSTIN APRN 735.0 HALLUX VALGUS (ACQUIRED) 12/09/2011 V70.3 Sports Physical 12/09/2011 TYRESE GAMING DO V70.3 Sports Physical 12/09/2011 V70.3 Sports Physical 12/09/2011 V70.3 Sports Physical 12/09/2011 TYRESE GAMING DO V70.3 Sports Physical 12/09/2011 V70.3 Sports Physical 12/09/2011 V70.3 Sports Physical 12/09/2011 V70.3 Sports Physical 12/09/2011 V70.3 Sports Physical 12/09/2011 V70.3 Sports Physical 12/09/2011 V70.3 Sports Physical 12/09/2011 TYRESE GAMING DO V70.3 Sports Physical 12/09/2011 CATINA AGUSTIN APRN V70.3 Sports Physical 03/23/2012 Ot 465.9 ACUTE URI NOS 03/23/2012 Ot 786.2 COUGH 03/29/2012 461.9 SINUSITIS ACUTE 03/29/2012 493.92 ASTHMA (ACUTE ) EXACERBATION 03/29/2012 461.9 SINUSITIS ACUTE 03/29/2012 493.92 ASTHMA (ACUTE ) EXACERBATION 03/29/2012 TYRESE GAMING DO 461.9 SINUSITIS ACUTE 03/29/2012 TYRESE GAMING DO 493.92 ASTHMA (ACUTE) EXACERBATION 03/29/2012 461.9 SINUSITIS ACUTE 03/29/2012 493.92 ASTHMA (ACUTE ) EXACERBATION 03/29/2012 461.9 SINUSITIS ACUTE 03/29/2012 493.92 ASTHMA (ACUTE ) EXACERBATION 03/29/2012 461.9 SINUSITIS ACUTE 03/29/2012 493.92 ASTHMA (ACUTE ) EXACERBATION 03/29/2012 461.9 SINUSITIS ACUTE 03/29/2012 493.92 ASTHMA (ACUTE ) EXACERBATION 03/29/2012 461.9 SINUSITIS ACUTE 03/29/2012 493.92 ASTHMA (ACUTE ) EXACERBATION 03/29/2012 461.9 SINUSITIS ACUTE 03/29/2012 493.92 ASTHMA (ACUTE ) EXACERBATION 03/29/2012 TYRESE GAMING DO 461.9 SINUSITIS ACUTE 03/29/2012 TYRESE GAMING DO 493.92 ASTHMA (ACUTE) EXACERBATION 03/29/2012 CATINA AGUSTIN APRN A 461.9 SINUSITIS ACUTE 03/29/2012 SATNAM AGUSTIN APRNYL A 493.92 ASTHMA (ACUTE) EXACERBATION 04/13/2012 381.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 04/13/2012 465.9 UPPER RESPIRATORY INFECTION 04/13/2012 TYRESE GAMING DO 381.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 04/13/2012 TYRESE GAMING DO 465.9 UPPER RESPIRATORY INFECTION 04/13/2012 381.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9 UPPER RESPIRATORY INFECTION 04/13/2012 CATINA AGUSTIN APRN A 381.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 04/13/2012 SATNAM AGUSTIN APRNYL A 465.9 UPPER RESPIRATORY INFECTION 05/05/2012 TYRESE GAMING DO 703.8 ONYCHOCRYPTOSIS 05/05/2012 703.8 ONYCHOCRYPTOSIS 05/05/2012 703.8 ONYCHOCRYPTOSIS 05/05/2012 703.8 ONYCHOCRYPTOSIS 05/05/2012 703.8 ONYCHOCRYPTOSIS 05/05/2012 703.8 ONYCHOCRYPTOSIS 05/05/2012 703.8 ONYCHOCRYPTOSIS 05/05/2012 GAMING DO, TYRESE K 703.8 ONYCHOCRYPTOSIS 05/05/2012 CATINA AGUSTIN APRN A 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.8 ONYCHOCRYPTOSIS 06/01/2012 Ot 465.9 ACUTE URI NOS 06/01/2012 Ot 786.2 COUGH 06/23/2012 703.0 INGROWN TOENAIL (infection) 06/23/2012 703.0 INGROWN TOENAIL (infection) 06/23/2012 703.0 INGROWN TOENAIL (infection) 06/23/2012 703.0 INGROWN TOENAIL (infection) 06/23/2012 703.0 INGROWN TOENAIL (infection) 06/23/2012 703.0 INGROWN TOENAIL (infection) 06/23/2012 GAMING DO, TYRESE K 703.0 INGROWN TOENAIL (infection) 06/23/2012 SATNAM AGUSTIN APRNYL A 703.0 INGROWN TOENAIL (infection) 11/13/2012 780.79 fatigue 11/13/2012 786.50 CHEST PAIN 11/13/2012 790.29 OTHER ABNORMAL GLUCOSE 11/13/2012 780.79 fatigue 11/13/2012 786.50 CHEST PAIN 11/13/2012 790.29 OTHER ABNORMAL GLUCOSE 11/13/2012 GAMING DO, TYRESE K 780.79 fatigue 11/13/2012 GAMING DO, TYRESE K 786.50 CHEST PAIN 11/13/2012 GAMING DO, TYRESE K 790.29 OTHER ABNORMAL GLUCOSE 11/13/2012 SATNAM AGUSTIN APRNYL A 780.79 fatigue 11/13/2012 CATINA AGUSTIN APRN A 786.50 CHEST PAIN 11/13/2012 SATNAM AGUSTIN APRNYL A 790.29 OTHER ABNORMAL GLUCOSE 08/17/2013 CATINA AGUSTIN APRN A 729.5 PAIN- ARM 08/02/2014 SAÚL PINZON APRN Ot 692.9 DERMATITIS NOS 08/02/2014 SAÚL PINZON HONEYCOMB DECAPPER Ot 782.1 NONSPECIF SKIN ERUPT NEC 04/29/2015 Ot J06.9 ACUTE UPPER RESPIRATORY INFECTION, UNSPE 07/07/2015 HERMELINDASHELLEYEDIEBENITO E HONEYCOMB DECAPPER Ot R10.13 EPIGASTRIC PAIN 07/14/2015 HELLDASIAEDIEBENITO E HONEYCOMB DECAPPER Ot E28.2 POLYCYSTIC OVARIAN SYNDROME 07/18/2015 HELLDASIA BENITO E HONEYCOMB DECAPPER Ot R10.13 EPIGASTRIC PAIN 05/10/2017 HELLDASIA BENITO E HONEYCOMB DECAPPER Ot E28.2 POLYCYSTIC OVARIAN SYNDROME 05/10/2017 HELLEDIE FORMANSIE E HONEYCOMB DECAPPER Ot R10.13 EPIGASTRIC PAIN 05/13/2017 HELLDASIAEDIEBENITO E HONEYCOMB DECAPPER Ot E28.2 POLYCYSTIC OVARIAN SYNDROME 05/13/2017 HELLDASIAEDIEBENITO E HONEYCOMB DECAPPER Ot R10.13 EPIGASTRIC PAIN 05/16/2017 LIZZIE ALONZO APRN Ot E04.9 NONTOXIC GOITER, UNSPECIFIED 06/01/2017 TINO SHELBY Ot E04.9 NONTOXIC GOITER, UNSPECIFIED Procedures Code Description Performed By Performed On [facility] 03/16/2012 92663 NAIL REMOVAL PERMANENT ( PARTIAL OR COMPLETE) 07/28/2012 92501 ROUTINE VENIPUNCTURE 11/13/2012 84731 EKG, TRACING (IN-HOUSE) 11/13/2012 66388 XRAY CHEST 2 VIEW 11/13/2012 14180 CBC 11/13/2012 54397 CMP 11/13/2012 85546 ROUTINE VENIPUNCTURE 11/17/2012 34336 A1C (IN-HOUSE) 11/17/2012 03206 LIPID PANEL 11/17/2012 26173 TSH 11/17/2012 31243 T4 FREE 11/17/2012 40443 INSULIN LEVEL 11/17/2012 Results Test Result Range LIPID PANEL - 04/19/17 11:48 CHOLESTEROL, TOTAL 165 mg/dL <170 HDL CHOLESTEROL 48 mg/dL >45 TRIGLYCERIDES 55 mg/dL <90 LDL-CHOLESTEROL 103 mg/dL (calc) <110 CHOL/HDLC RATIO 3.4 (calc) <5.0 NON HDL CHOLESTEROL 117 mg/dL (calc) <120 CMP - 04/19/17 11:48 GLUCOSE 102 mg/dL 65-99 UREA NITROGEN (BUN) 14 mg/dL 7-20 CREATININE 0.77 mg/dL 0.50-1.00 eGFR NON-AFR. BUR[place] 112 mL/min/1.73m2 > OR=60 eGFR 130 mL/min/1.73m2 > OR=60 BUN/CREATININE RATIO NOT APPLICABLE (calc) 6-22 SODIUM 139 mmol/L 135-146 POTASSIUM 4.4 mmol/L 3.8-5.1 CHLORIDE 106 mmol/L 98-110 CARBON DIOXIDE 18 mmol/L 20-31 CALCIUM 9.7 mg/dL 8.9-10.4 PROTEIN, TOTAL 7.6 g/dL 6.3-8.2 ALBUMIN 4.6 g/dL 3.6-5.1 GLOBULIN 3.0 g/dL (calc) 2.0-3.8 ALBUMIN/GLOBULIN RATIO 1.5 (calc) 1.0-2.5 BILIRUBIN, TOTAL 0.4 mg/dL 0.2-1.1 ALKALINE PHOSPHATASE 73 U/L 47-176 AST 19 U/L 12-32 ALT 24 U/L 5-32 CBC - 04/19/17 11:48 WHITE BLOOD CELL COUNT 6.6 Thousand/uL 3.8-10.8 RED BLOOD CELL COUNT 4.72 Million/uL 3.80-5.10 HEMOGLOBIN 13.8 g/dL 11.7-15.5 HEMATOCRIT 42.4 % 35.0-45.0 MCV 89.8 fL 80.0-100.0 MCH 29.2 pg 27.0-33.0 MCHC 32.5 g/dL 32.0-36.0 RDW 12.9 % 11.0-15.0 PLATELET COUNT 215 Thousand/uL 140-400 MPV 12.0 fL 7.5-12.5 ABSOLUTE NEUTROPHILS 3894 cells/uL 0445-0203 ABSOLUTE LYMPHOCYTES 2092 cells/uL 850-3900 ABSOLUTE MONOCYTES 541 cells/uL 200-950 ABSOLUTE EOSINOPHILS 40 cells/uL 15-500 ABSOLUTE BASOPHILS 33 cells/uL 0-200 NEUTROPHILS 59 % NRG LYMPHOCYTES 31.7 % NRG MONOCYTES 8.2 % NRG EOSINOPHILS 0.6 % NRG BASOPHILS 0.5 % NRG THYROID ANALYZER - 04/19/17 11:48 TSH 3.30 mIU/L NRG A1C - 04/19/17 11:48 HEMOGLOBIN A1c 5.0 % of total Hgb <5.7 THYROID PEROXIDASE (TPO) ANTIBODY - 05/02/17 15:06 THYROID PEROXIDASE ANTIBODIES 1 IU/mL <9 Encounters ACCT No. Visit Date/Time Discharge Status Pt. Type Provider Facility Loc./Unit Complaint [id number] 04/23/2014 14:01:00 04/23/2014 23:59:59 CLS Outpatient TYRESE GAMING DO Janine [id number] 08/17/2013 10:44:00 08/17/2013 23:59:59 CLS Outpatient CATINA AGUSTIN APRN [id number] 05/25/2013 09:28:00 05/25/2013 23:59:59 CLS Outpatient TYRESE GAMING DO Janine [id number] 06/23/2012 10:59:00 06/23/2012 23:59:59 CLS Outpatient [id number] 05/05/2012 10:37:00 05/05/2012 23:59:59 CLS Outpatient TYRESE GAMING DO Janine [id number] 04/13/2012 14:26:00 04/13/2012 23:59:59 CLS Outpatient [id number] 03/29/2012 14:13:00 03/29/2012 23:59:59 CLS Outpatient [id number] 03/09/2012 14:05:00 03/09/2012 23:59:59 CLS Outpatient TYRESE GAMING DO Janine [id number] 01/18/2012 14:32:00 01/18/2012 23:59:59 CLS Outpatient [id number] 11/17/2012 09:07:00 Document Registration [id number] 11/13/2012 13:57:00 Document Registration [id number] 09/01/2012 07:52:00 Document Registration [id number] 08/11/2012 08:45:00 Document Registration [id number] 07/28/2012 10:23:00 Document Registration [id number] 08/03/2014 03:28:08 ACT Document Registration [id number] 05/31/2017 11:51:00 05/31/2017 23:59:59 CLS Outpatient TINO SHELBY [facility] CARD E04.9 GOITER [id number] 05/13/2017 13:20:00 05/13/2017 23:59:59 CLS Outpatient LIZZIE ALONZO APRN [facility] RAD E04.9 GOITER [id number] 07/04/2015 09:15:00 07/04/2015 23:59:59 CLS Outpatient HELLEDIE FORMANSIE E HONEYCOMB DECAPPER [facility] RAD EPLGASTRIC ABDOMINAL PAIN [id number] 06/27/2015 09:47:00 06/27/2015 23:59:59 CLS Outpatient HERMELINDALEDIE FORMANSIE E HONEYCOMB DECAPPER [facility] RAD EPIGASTRIC ABD PAIN, PCOS [id number] 08/02/2014 18:14:00 08/02/2014 18:54:00 DIS Emergency SAÚL PINZON HONEYCOMB DECAPPER [facility] ER RASH [id number] 06/29/2018 16:12:00 ACT Emergency SAÚL PINZON HONEYCOMB DECAPPER [facility] ER R FOOT PAIN/NO INJ [id number] 04/29/2015 18:33:00 Document Registration [id number] 06/01/2012 18:26:00 Document Registration [id number] 03/22/2012 22:02:00 Document Registration [id number] 12/01/2010 22:33:00 Document Registration [id number] 07/24/2010 18:46:00 Document Registration [id number] 05/13/2010 19:04:00 Document Registration [id number] 05/24/2017 11:20:00 05/24/2017 23:59:59 CLS Outpatient LIZZIE ALONZO [facility] [id number] 05/02/2017 15:00:00 Document Registration [id number] 04/19/2017 11:00:00 Document Registration
== END 2018-06-29 17:06 | disposition home or self-care (01) ==
LOC: EDUNIT# 16:10 → ER 16:12
DX: S93.601A Unspecified sprain of right foot, initial encounter (principal); J45.909 Unspecified asthma, uncomplicated; X50.0XXA Overexertion from strenuous movement or load, initial encounter
CPT/HCPCS: 73630

== ENCOUNTER 2018-08-24 09:57 | Emergency (ER) | payer OTHER ==
[~2018-08-24] VITALS: Ht 170.2 cm; Wt 95.5 kg
[2018-08-24] MEDS ORDERED: RT-ALBUTEROL SULF 2.5 MG/3 ML PRE-MIX VIAL INH STA (10:22)
--- OUTSIDE RECORDS SUMMARY | 2018-08-24 10:27 | XMS REPORT ---
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 Name Role Phone Migration, Doctor Unavailable Unavailable PROBLEMS Type Condition ICD9-CM Code WLB80-ZR Code Onset Dates Condition Status SNOMED Code Problem Goiter E04.9 Active 2361895 Problem Other obesity due to excess calories E66.09 Active 028852796 Problem Elevated fasting glucose R73.01 Active 61980653 Problem GERD (gastroesophageal reflux disease) K21.9 Active 083471096 Problem Mild intermittent asthma without complication J45.20 Active 387273060 Problem Body mass index (BMI) of 32.0-32.9 in adult Z68.32 Active 428799739 ALLERGIES No Information ENCOUNTERS Encounter Location Date Diagnosis [place] [address] [address] Sep, [place] [address] [address] May, [place] [address] [address] May, Goiter E04.9 and URI, acute J06.9 [place] [address] [place] [id number] [place] [address] May, Goiter E04.9 [place] [address] [place] [id number] [place] [address] Apr, Goiter E04.9 [place] [address] [address] Apr, 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 [place] [address] [place] [id number] [place] [address] Apr, 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 [place] [address] [address] 30 Mar, 2017 Mild intermittent asthma without complication J45.20 ; GERD (gastroesophageal reflux disease) K21.9 ; Other obesity due to excess calories E66.09 ; Body mass index (BMI) of 32.0-32.9 in adult Z68.32 ; Goiter E04.9 and Nodule of neck R22.[address] [address] Mar, [facility] [address] [address] Feb, Cough R05 and Mild intermittent asthma without complication J45.[address] [id number] 24 May, 2015 Abdominal pain R10.9 ; PCOS (polycystic ovarian syndrome) E28.2 and Epigastric abdominal pain R10.[address] [address] May, Abdominal pain R10.9 ; Asthma J45.909 ; GERD (gastroesophageal reflux disease) K21.9 and UTI (urinary tract infection) N39.[address] [address] Jan, Gastro-esophageal reflux disease without esophagitis K21.9 and Dysmenorrhea N94.[address] [id number] Nov, Upper respiratory infection 465.[address] [address] 09 Nov, 2014 Upper respiratory infection 465.9 and Asthma 493.[address] [id number] Oct, Bronchitis 490 and Pharyngitis [address] [address] Jun, [address] [place] [address] Jun, [facility] [address] [facility] [id number] [place] [address] May, [facility] [address] [facility] [id number] [place] [address] May, [facility] [address] [facility] [id number] [id number] Apr, [facility] [place] [facility] [address] [facility] [id number] [address] Apr, [facility] [address] [facility] [id number] [place] [address] July, [facility] [place] [facility] [address] [facility] [id number] [place] [address] July, [facility] [address] [place] [id number] [address] May, [facility] [place] [facility] [address] [facility] [id number][place] [address] May, [facility] [address] [facility] [id number][place] [address] Nov, [facility] [place] [facility] [address] [facility] [id number] [address] Nov, [facility] [address] [id number] [id number] Oct, [facility] [place] [facility] [address] [id number] [address] Oct, [facility] [place] [facility] [address] [id number], [place] [address] Aug, [facility] [place] [facility] [address] [facility] [id number][place] [address] July, [facility] [place] [facility] [address] [facility] [id number][place] [address] July, [facility] [place] [facility] [address] [facility] [id number][place] [address] Jun, [facility] [address] [facility] [id number] [place] [address] Apr, [facility] [address] [facility] [id number] [address] Apr, [facility] [id number] [id number] Mar, [facility] [address] [facility] [id number][place] [address] Mar, [facility] [address]00565100[place], [place] [address] Feb, [facility] [address] [facility] [id number][place] [address] Feb, [facility] [address]00565100[place], [place] [address] Feb, [facility] [address] [facility] [id number][place] [address] Feb, [facility] [id number][place] [address] Dec, [facility] [id number][place] [address] Dec, [facility] [address]00565100[place], [place] [address] Dec, [facility] [address] [facility] [id number] [address] Dec, [facility] [address] [facility] [id number][place] [address] Nov, [facility] [address] [facility] [id number][place] [address] Sep, [facility] [place] [facility] [address] [place] [id number] [address] July, [facility] [address]00565100[place], [place] [address] May, [facility] [address]00565100[place] [address] Mar, [facility] [address]00565100[place], [place] [address] Nov, [facility] [address]00565100[place], [place] [address] Oct, [facility] [address]00565100[place], [place] [address] Mar, [facility] [address]00565100[place], [place] [address] Feb, [facility] [address]00565100[place] [address] Dec, [facility] [address]00565100[place] [address] Dec, [facility] [address]00565100[place] [address] Nov, [facility] [address]00565100[place], [place] [address] Dec, [facility] [address]00565100[place] [address] July, [facility] [address]00565100[place], [place] [address] Dec, IMMUNIZATIONS No Known Immunizations SOCIAL HISTORY Never Assessed [place]ASON FOR V[place]IT [place] VITAL SIGNS MEDICATIONS Unknown Medications RESULTS No Results PROCEDURES No Known procedures INSTRUCTIONS MEDICATIONS ADMINISTERED No Known Medications MEDICAL (GENERAL) HISTORY Type Description Date Medical History asthma Hospitalization History pneumonia x 2 as
--- OUTSIDE RECORDS SUMMARY | 2018-08-24 10:27 | XMS REPORT ---
Author Author Migration, Doctor Organization [facility] Address Unknown Phone Unavailable Care Team Providers Care Interface Designer Name Role Phone Migration, Doctor Unavailable Unavailable PROBLEMS Type Condition ICD9-CM Code [id number] Code Onset Dates Condition Status SNOMED Code Problem Goiter E04.9 Active 8384781 Problem Other obesity due to excess calories E66.09 Active 497311757 Problem Elevated fasting glucose R73.01 Active 61470195 Problem GERD (gastroesophageal reflux disease) K21.9 Active 265765299 Problem Mild intermittent asthma without complication J45.20 Active 104602869 Problem Body mass index (BMI) of 32.0-32.9 in adult Z68.32 Active 820989430 ALLERGIES No Information ENCOUNTERS Encounter Location Date Diagnosis [place] [address] [address] Sep, [place] [address] [address] May, [place] [address] [address] May, Goiter E04.9 and URI, acute J06.9 [place] [address] [place] [id number] [place] [address] May, Goiter E04.9 [place] [address] [place] [id number] [place] [address] Apr, Goiter E04.9 [place] [address] [address] Apr, 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 [place] [address] [place] [id number] [place] [address] Apr, 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 [place] [address] [address] 30 Mar, 2017 Mild intermittent asthma without complication J45.20 ; GERD (gastroesophageal reflux disease) K21.9 ; Other obesity due to excess calories E66.09 ; Body mass index (BMI) of 32.0-32.9 in adult Z68.32 ; Goiter E04.9 and Nodule of neck R22.[address] [address] Mar, [facility] [address] [address] Feb, Cough R05 and Mild intermittent asthma without complication J45.[address] [id number] 24 May, 2015 Abdominal pain R10.9 ; PCOS (polycystic ovarian syndrome) E28.2 and Epigastric abdominal pain R10.[address] [address] May, Abdominal pain R10.9 ; Asthma J45.909 ; GERD (gastroesophageal reflux disease) K21.9 and UTI (urinary tract infection) N39.[address] [address] Jan, Gastro-esophageal reflux disease without esophagitis K21.9 and Dysmenorrhea N94.[address] [id number] Nov, Upper respiratory infection 465.[address] [address] 09 Nov, 2014 Upper respiratory infection 465.9 and Asthma 493.[address] [id number] Oct, Bronchitis 490 and Pharyngitis [address] [address] Jun, [address] [place] [address] Jun, [facility] [address] [facility] [id number] [place] [address] May, [facility] [address] [facility] [id number] [place] [address] May, [facility] [address] [facility] [id number] [place] [address] Apr, [facility] [place] [facility] [address] [facility] [id number] [address] Apr, [facility] [address] [facility] [id number] [place] [address] July, [facility] [place] [facility] [address] [facility] [id number] [place] [address] July, [facility] [address] [place] [id number] [address] May, [facility] [place] [facility] [address] [facility] [id number] [address] May, [facility] [address] [facility] [id number], [place] [address] Nov, [facility] [place] [facility] [address] [facility] [id number][place] [address] Nov, [facility] [address] [place] [id number] [place] [id number] Oct, [facility] [place] [facility] [address] [id number], [place] [address] Oct, [facility] [place] [facility] [address] [id number] [address] Aug, [facility] [place] [facility] [address] [facility] [id number], [place] [address] July, [facility] [place] [facility] [address] [facility] [id number], [place] [address] July, [facility] [place] [facility] [address] [facility] [id number], [place] [address] Jun, [facility] [address] [facility] [id number] [place] [address] Apr, [facility] [address] [facility] [id number], [place] [address] Apr, [facility] [id number] [place] [id number] Mar, [facility] [address] [facility] [id number][place] [address] Mar, [facility] [address]00565100[place], [place] [address] Feb, [facility] [address] [facility] [id number], [place] [address] Feb, [facility] [address]00565100[place], [place] [address] Feb, [facility] [address] [facility] [id number][place] [address] Feb, [facility] [id number] [place] [address] Dec, [facility] [id number] [place]ENTER[place] [id number] Dec, [facility] [address]00565100[place], [place] [address] Dec, [facility] [address] [facility] [id number], [place] [address] Dec, [facility] [address] [facility] [id number] [place] [id number] Nov, [facility] [address] [facility] [id number], [place] [address] Sep, [facility] [place] [facility] [address] [place] [id number], [place] [address] July, [facility] [address]00565100[place], [place] [address] May, [facility] [address]00565100[place], [place] [address] Mar, [facility] [address]00565100[place], [place] [address] Nov, [facility] [address]00565100[place], [place] [address] Oct, [facility] [address]00565100[place], [place] [address] Mar, [facility] [address]00565100[place], [place] [address] Feb, [facility] [address]00565100[place], [place] [address] Dec, [facility] [address]00565100[place], [place] [address] Dec, [facility] [address]00565100[place], [place] [address] Nov, [facility] [address]00565100[place], [place] [address] Dec, [facility] [address]00565100[place], [place] [address] July, [facility] [address]00565100[place], [place] [address] Dec, IMMUNIZATIONS No Known Immunizations SOCIAL HISTORY Never Assessed REASON FOR VISIT [place] [place] C[place] VITAL SIGNS MEDICATIONS Unknown Medications RESULTS No Results PROCEDURES No Known procedures INSTRUCTIONS MEDICATIONS ADMINISTERED No Known Medications MEDICAL (GENERAL) HISTORY Type Description Date Medical History asthma Hospitalization History pneumonia x 2 as
--- NOTE | 2018-08-24 10:28 | ED Cough/URI ---
General Chief Complaint: Respiratory Problems Stated Complaint: COUGH Source: patient Exam Limitations: no limitations History of Present Illness Date Seen by Provider: Aug 24, 2018 Time Seen by Provider: 10:15 Initial Comments Patient presents to ER by private conveyance with chief complaint that she is having a cough for the past 8 months that is only occasionally productive. No fevers chills nausea sweats or shortness of breath. She has no wheezing but he does have a history of asthma and uses her albuterol inhaler twice a day regardless of symptoms. She does not notice that it helps with her coughing. She says her cough is made worse by any kind of activity. She does not notice her cough worse at night. She has not taken anything for it otherwise. She does not follow up with primary care since Rosi Bety left. She's not on a controller meds. She does not follow with pulmonology. She is not on control. She does endorse acid reflux and indigestion symptoms. Allergies and Home Medications Allergies Coded Allergies: No Known Drug Allergies (Unverified , 08/12/08) Home Medications Albuterol 17 Gm Aerosol, 1 GM IH PRN, (Reported) Albuterol Sulfate 1 Puff Puff, 2 PUFF IH Q4H PRN for COUGH 1 PUFF = 90 MCG Prescribed by: MARIA ESTHER TORRES on 08/24/18 103 Azithromycin 250 Mg Tablet, 250 MG PO UD TAKE 2 TABLETS TODAY, THEN TAKE 1 TABLET DAILY FOR 4 MORE DAYS Prescribed by: SAÚL PINZON on 04/29/15 185 D-Methorphan Hb/P-Epd HCl/Bpm 118 Ml Syrup, 5 ML PO Q4H PRN for COUGH Prescribed by: SAÚL PINZON on 04/29/15 185 Fluticasone Propionate 1 Ea Aero, 2 PUFF IH DAILY Prescribed by: MARIA ESTHER TORRES on 08/24/18 103 Omeprazole 20 Mg Capsule.dr, 20 MG PO DAILY Prescribed by: MARIA ESTHER TORRES on 08/24/18 1036 Triamcinolone Acet 15 Gm Cr, 0 TOP BID - TID PRN APPLY SPRARINGLY TO AFFECTED AREA(S) Prescribed by: SAÚL PINZON on 08/02/14 1845 Patient Home Medication List Home Medication List Reviewed: Yes Review of Systems Review of Systems Constitutional: No chills, No fever, No malaise EENTM: No ear discharge, No ear pain Respiratory: see HPI, cough; No orthopnea, No phlegm, No short of breath, No wheezing Cardiovascular: No chest pain, No palpitations Gastrointestinal: No abdominal pain, No constipation, No diarrhea Genitourinary: No discharge, No dysuria : No Past Uhtwjyu-Excqvf-Rufhcu Hx Patient Social History Alcohol Use: Occasionally Uses Recreational Drug Use: No Smoking Status: Never a Smoker Recent Hopitalizations: No Physical Abuse: No Sexual Abuse: No Mistreated: No Fear: No Immunizations Up To Date PED Vaccines UTD: Yes Seasonal Allergies Seasonal Allergies: No Past Medical History Surgeries: No Respiratory: No Asthma Cardiac: No Neurological: No Reproductive Disorders: No Sexually Transmitted Disease: No HIV/AIDS: No Genitourinary: No Gastrointestinal: No Musculoskeletal: No Endocrine: No HEENT: No Cancer: No Psychosocial: No Integumentary: No Blood Disorders: No Adverse Reaction/Blood Tranf: No Family Medical History Asthma Physical Exam Vital Signs - First Documented 08/24/18 10:11 Temp 97.3 Pulse 110 Resp 18 B/P (MAP) 139/99 (112) Pulse Ox 99 Capillary Refill : Height: 5'7.00" Weight: 210lbs. 8oz. 95.991664ql; 29.13 BMI Method:Stated General Appearance: WD/WN, no apparent distress Eyes: Bilateral Eye Normal Inspection, Bilateral Eye PERRL, Bilateral Eye EOMI HEENT: PERRL/EOMI, pharynx normal Neck: full range of motion, normal inspection Respiratory: lungs clear, no respiratory distress, no accessory muscle use, decreased breath sounds Cardiovascular: normal peripheral pulses, regular rate, rhythm Gastrointestinal: normal bowel sounds, soft Neurologic/Psychiatric: alert, normal mood/affect, oriented x 3 Skin: normal color, warm/dry Progress/Results/Core Measures Suspected Sepsis SIRS Temperature: Pulse: Respiratory Rate: Blood Pressure / Mean: Results/Orders My Orders Orders - MARIA ESTHER TORRES Urine Bedside (08/24/18 10:22) Chest Pa/Lat (2 View) (08/24/18 10:22) Albuterol Pre-Mix Nebs (Rt) (Proventil (08/24/18 10:22) Svn Small Volume Nebulizer (08/24/18 10:22) Vital Signs/I&O 08/24/18 10:11 Temp 97.3 Pulse 110 Resp 18 B/P (MAP) 139/99 (112) Pulse Ox 99 Capillary Refill : Progress Note : Time: 10:26 Progress Note We'll give her albuterol inhaler and check a chest x-ray. Bedside urine . We will consider starting her on a inhaled corticosteroid since she seems to have a chronic cough after doesn't seem to be bacterial infectious comp onent to it. In the past she's been written for several different cough suppressants without success. Albuterol inhaler may her lung sounds which were already clear however she says she only feels marginally better. She has not coughed in this provider's presence since she's been in the ER. Diagnostic Imaging Diagonstic Imaging: Xray Plain Films/CT/US/NM/MRI: chest (2 view) Comments NAME: LEONARDO MAY [facility] REC#: [id number] PT STATUS: REG ER : 1995 PHYSICIAN: MARIA ESTHER TORRES MD ADMIT DATE: 08/24/18/ER Signed Date of Exam:08/24/18 CHEST PA/LAT (2 VIEW) CHEST PA/LAT (2 VIEW) Indication: Cough Comparison: None available. Findings: No focal pneumonic consolidation, pleural effusion or pneumothorax. Normal heart size and pulmonary vasculature. Impression: No acute cardiopulmonary process. Dictated by: Dictated on workstation # [id number] Dict: 08/24/18 1135 Trans: 08/24/18 1135 [facility] [id number] Interpreted by: ASHLEY GARCIA MD Electronically signed by: ASHLEY GARCIA MD 08/24/18 1135 Reviewed: Reviewed by Me Departure Impression Primary Impression: Asthma, exercise induced Additional Impressions: Chronic coughing GERD (gastroesophageal reflux disease) Qualified Codes: K21.9 - Gastro-esophageal reflux disease without esophagitis Disposition: 01 HOME, SELF-CARE Condition: Stable Departure-Patient Inst. Decision time for Depature: 12:22 Referrals: [facility] (PCP/Family) Primary Care Physician Patient Instructions: Rescue vs Controller Inhalers, Exercise-Induced Asthma Add. Discharge Instructions: Use the Flovent inhaler 2 puffs daily on a scheduled basis to reduce your cough and incidence of asthma symptoms. Use the albuterol 2 puffs every 6 hours as necessary for breakthrough coughing fits, wheezing or shortness of breath. 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 Follow-up with a primary care doctor to discuss management of your chronic cough and asthma symptoms. All discharge instructions reviewed with patient and/or family. Voiced understanding. Scripts Omeprazole (Omeprazole) 20 Mg Capsule.dr 20 MG PO DAILY for 30 Days, #30 CAP 0 Refills Prov: MARIA ESTHER TORRES 08/24/18 Fluticasone Propionate (Flovent Hfa 110 mcg) 1 Ea Aero 2 PUFF IH DAILY for 30 Days, #1 EA 0 Refills Prov: MARIA ESTHER TORRES 08/24/18 Albuterol Sulfate (PROAIR HFA) 1 Puff Puff 2 PUFF IH Q4H PRN for COUGH, #1 EA 0 Refills 1 PUFF = 90 MCG Prov: MARIA ESTHER TORRES 08/24/18 Work/School Note: Work Release Form Date Seen in the Emergency Department: Aug 24, 2018 Return to Work: Aug 25, 2018 Restrictions: No Restrictions MARIA ESTHER TORRES Aug 24, 2018 10:28
--- OUTSIDE RECORDS SUMMARY | 2018-08-24 10:30 | XMS REPORT | Continuity of Care Document ---
Author Organization Unknown Address Unknown Allergies Active Description Code Type Severity Reaction Onset Reported/Identified Relationship to Patient Clinical Status Yes No Known Drug Allergies [id number] Drug Allergy Mild N/A 08/12/2008 Medications There is no data. Problems Date Dx Coded Attending Type Code Diagnosis Diagnosed By 01/01/2008 034.0 Strep Throat 01/01/2008 528.9 Mouth Pain 01/01/2008 780.60 Fever, Unspecified 01/01/2008 TYRESE GMAING DO 034.0 Strep Throat 01/01/2008 TYRESE GAMING DO 528.9 Mouth Pain 01/01/2008 TYRESE GAMING DO 780.60 Fever, Unspecified 01/01/2008 034.0 Strep Throat 01/01/2008 528.9 Mouth Pain 01/01/2008 780.60 Fever, Unspecified 01/01/2008 034.0 Strep Throat 01/01/2008 528.9 Mouth Pain 01/01/2008 780.60 Fever, Unspecified 01/01/2008 TYRSEE GAMING DO 034.0 Strep Throat 01/01/2008 TYRESE [...] DO K 780.60 Fever, Unspecified 01/01/2008 RAJOTTE ON SITE CONSTRUCTION SUPERINTENDENT, CATINA A 034.0 Strep Throat 01/01/2008 RAJOTTE ON SITE CONSTRUCTION SUPERINTENDENT, CATINA A 528.9 Mouth Pain 01/01/2008 RAJOTTE ON SITE CONSTRUCTION SUPERINTENDENT, CATINA A 780.60 Fever, Unspecified 01/16/2008 079.99 [...] HAWTHORNE CATINA A 786.2 Cough 01/16/2008 OMAE ON SITE CONSTRUCTION SUPERINTENDENT, CATINA A 789.00 Colic Infantile 04/15/2008 691.8 [...] 11/04/2008 V05.4 Varicella, Chickenpox 11/04/2008 V06.5 Dt, Tetanus-diphtheria [td] ,tdap 11/04/2008 TYRESE GAMING DO V05.3 Hepatitis Viral/all 11/04/2008 TYRESE GAMING DO V05.4 Varicella, Chickenpox 11/04/2008 TYRESE GAMING DO V06.5 Dt, Tetanus-diphtheria [td] ,tdap 11/04/2008 V05.3 Hepatitis Viral/all 11/04/2008 V05.4 Varicella, Chickenpox 11/04/2008 V06.5 Dt, Tetanus-diphtheria [td] ,tdap 11/04/2008 V05.3 Hepatitis Viral/all 11/04/2008 V05.4 Varicella, Chickenpox 11/04/2008 V06.5 Dt, Tetanus-diphtheria [td] ,tdap 11/04/2008 TYRESE GAMING DO V05.3 Hepatitis Viral/all 11/04/2008 TYRESE GAMING DO V05.4 Varicella, Chickenpox 11/04/2008 TYRESE GAMING DO V06.5 Dt, Tetanus-diphtheria [td] ,tdap 11/04/2008 V05.3 Hepatitis Viral/all 11/04/2008 V05.4 Varicella, Chickenpox 11/04/2008 V06.5 Dt, Tetanus-diphtheria [td] ,tdap 11/04/2008 V05.3 Hepatitis Viral/all 11/04/2008 V05.4 Varicella, Chickenpox 11/04/2008 V06.5 Dt, Tetanus-diphtheria [td] ,tdap 11/04/2008 V05.3 Hepatitis Viral/all 11/04/2008 V05.4 Varicella, Chickenpox 11/04/2008 V06.5 Dt, Tetanus-diphtheria [td] ,tdap 11/04/2008 V05.3 Hepatitis Viral/all 11/04/2008 V05.4 Varicella, Chickenpox 11/04/2008 V06.5 Dt, Tetanus-diphtheria [td] ,tdap 11/04/2008 V05.3 Hepatitis Viral/all 11/04/2008 V05.4 Varicella, Chickenpox 11/04/2008 V06.5 Dt, Tetanus-diphtheria [td] ,tdap 11/04/2008 V05.3 Hepatitis Viral/all 11/04/2008 V05.4 Varicella, Chickenpox 11/04/2008 V06.5 Dt, Tetanus-diphtheria [td] ,tdap 11/04/2008 TYRESE GAMING DO V05.3 Hepatitis Viral/all 11/04/2008 TYRESE GAMING DO V05.4 Varicella, Chickenpox 11/04/2008 TYRESE GAMING DO V06.5 Dt, Tetanus-diphtheria [td] ,tdap 11/04/2008 RAJOTTE ON SITE CONSTRUCTION SUPERINTENDENT, CATINA A V05.3 Hepatitis Viral/all 11/04/2008 RAJOTTE ON SITE CONSTRUCTION SUPERINTENDENT, CATINA A V05.4 Varicella, Chickenpox 11/04/2008 RAJOTTE ON SITE CONSTRUCTION SUPERINTENDENT CATINA A V06.5 Dt, Tetanus-diphtheria [td] ,tdap [...] 03/27/2010 703.0 Ingrown Toenail (infection) 03/27/2010 TYRESE GAMING DO K 703.0 Ingrown Toenail (infection) 03/27/2010 [...] 706.1 ACNE 11/05/2010 706.1 ACNE 11/05/2010 TYRESE GMAING DO 706.1 ACNE 11/05/2010 CATINA AGUSTIN APRN 706.1 ACNE 12/01/2010 Ot 789.01 12/07/2010 V05.3 Hep A (ped/adol 2-dose) Dx 12/07/2010 V20.2 WELL CHILD 12/07/2010 TYRESE GAMING DO V05.3 Hep A (ped/adol 2-dose) Dx 12/07/2010 TYRESE GAMING DO V20.2 WELL CHILD 12/07/2010 V05.3 Hep A (ped/adol 2-dose) Dx 12/07/2010 V20.2 WELL CHILD 12/07/2010 V05.3 Hep A (ped/adol 2-dose) Dx 12/07/2010 V20.2 WELL CHILD 12/07/2010 TYRESE GAMING DO V05.3 Hep A (ped/adol 2-dose) Dx 12/07/2010 TYRESE GAMING DO V20.2 WELL CHILD 12/07/2010 V05.3 Hep A (ped/adol 2-dose) Dx 12/07/2010 V20.2 WELL CHILD 12/07/2010 V05.3 Hep A (ped/adol 2-dose) Dx 12/07/2010 V20.2 WELL CHILD 12/07/2010 V05.3 Hep A (ped/adol 2-dose) Dx 12/07/2010 V20.2 WELL CHILD 12/07/2010 V05.3 Hep A (ped/adol 2-dose) Dx 12/07/2010 V20.2 WELL CHILD 12/07/2010 V05.3 Hep A (ped/adol 2-dose) Dx 12/07/2010 V20.2 WELL CHILD 12/07/2010 V05.3 Hep A (ped/adol 2-dose) Dx 12/07/2010 V20.2 WELL CHILD 12/07/2010 [...] 03/29/2012 461.9 SINUSITIS ACUTE 03/29/2012 493.92 ASTHMA (ACUTE) EXACERBATION 03/29/2012 461.9 SINUSITIS ACUTE 03/29/2012 493.92 ASTHMA (ACUTE) EXACERBATION 03/29/2012 TYRESE GAMING DO 461.9 SINUSITIS ACUTE 03/29/2012 TYRESE GAMING DO 493.92 ASTHMA (ACUTE) EXACERBATION 03/29/2012 461.9 SINUSITIS ACUTE 03/29/2012 493.92 ASTHMA (ACUTE) EXACERBATION 03/29/2012 461.9 SINUSITIS ACUTE 03/29/2012 493.92 ASTHMA (ACUTE) EXACERBATION 03/29/2012 461.9 SINUSITIS ACUTE 03/29/2012 493.92 ASTHMA (ACUTE) EXACERBATION 03/29/2012 461.9 SINUSITIS ACUTE 03/29/2012 493.92 ASTHMA (ACUTE) EXACERBATION 03/29/2012 461.9 SINUSITIS ACUTE 03/29/2012 493.92 ASTHMA (ACUTE) EXACERBATION 03/29/2012 461.9 SINUSITIS ACUTE 03/29/2012 493.92 ASTHMA (ACUTE) EXACERBATION 03/29/2012 TYRESE GAMING DO 461.9 SINUSITIS [...] Ot 692.9 DERMATITIS NOS 08/02/2014 SAÚL PINZON APRN Ot 782.1 NONSPECIF SKIN ERUPT NEC 04/29/2015 Ot J06.9 ACUTE UPPER RESPIRATORY INFECTION, UNSPE 07/07/2015 HELLDASIA BENITO E ON SITE CONSTRUCTION SUPERINTENDENT Ot R10.13 EPIGASTRIC PAIN 07/14/2015 HELLEDIE FORMANSIE E ON SITE CONSTRUCTION SUPERINTENDENT Ot E28.2 POLYCYSTIC OVARIAN SYNDROME 07/18/2015 HELLDASIA BENITO E ON SITE CONSTRUCTION SUPERINTENDENT Ot R10.13 EPIGASTRIC PAIN 05/10/2017 HELLDASIA, BENITO E ON SITE CONSTRUCTION SUPERINTENDENT Ot E28.2 POLYCYSTIC OVARIAN SYNDROME 05/10/2017 HELLDASIA, BENITO E ON SITE CONSTRUCTION SUPERINTENDENT Ot R10.13 EPIGASTRIC PAIN 05/13/2017 HELLDASIA, BENITO E ON SITE CONSTRUCTION SUPERINTENDENT Ot E28.2 POLYCYSTIC OVARIAN SYNDROME 05/13/2017 HELLDASIA, BENITO E ON SITE CONSTRUCTION SUPERINTENDENT Ot R10.13 EPIGASTRIC PAIN 05/16/2017 LIZZIE ALONZO APRN Ot E04.9 NONTOXIC GOITER, UNSPECIFIED 06/01/2017 TINO SHELBY Ot E04.9 NONTOXIC GOITER, UNSPECIFIED 06/29/2018 SAÚL PINZON APRN Ot J45.909 UNSPECIFIED ASTHMA, UNCOMPLICATED 06/29/2018 SAÚL PINZON APRN Ot M79.671 PAIN IN RIGHT FOOT 06/29/2018 SAÚL PINZON APRN Ot S93.601A UNSPECIFIED SPRAIN OF RIGHT FOOT, INITIA 06/29/2018 SAÚL PINZON APRN Ot X50.0XXA OVEREXERTION FROM STRENUOUS MOVEMENT OR 07/03/2018 SAÚL PINZON APRN Ot J45.909 UNSPECIFIED ASTHMA, UNCOMPLICATED 07/03/2018 SAÚL PINZON APRN Ot M79.671 PAIN IN RIGHT FOOT 07/03/2018 SAÚL PINZON APRN Ot S93.601A UNSPECIFIED SPRAIN OF RIGHT FOOT, INITIA 07/03/2018 SAÚL PINZON APRN Ot X50.0XXA OVEREXERTION FROM STRENUOUS MOVEMENT OR Procedures Code Description Performed By Performed On Nj Freeman 03/16/2012 10980 NAIL REMOVAL PERMANENT (PARTIAL OR COMPLETE) 07/28/2012 88713 ROUTINE VENIPUNCTURE 11/13/2012 99554 EKG, TRACING (IN-HOUSE) 11/13/2012 05703 XRAY CHEST 2 VIEW 11/13/2012 28382 CBC 11/13/2012 99949 CMP 11/13/2012 43640 ROUTINE VENIPUNCTURE 11/17/2012 01172 A1C (IN-HOUSE) 11/17/2012 93580 LIPID PANEL 11/17/2012 57868 TSH 11/17/2012 62503 T4 FREE 11/17/2012 87458 INSULIN LEVEL 11/17/2012 Results There is no data. Encounters ACCT No. Visit Date/Time Discharge Status Pt. Type Provider Facility Loc./Unit Complaint [id number] 04/23/2014 14:01:00 04/23/2014 23:59:59 CLS Outpatient TYRESE GAMING DO [id number] 08/17/2013 10:44:00 08/17/2013 23:59:59 CLS Outpatient CATINA AGUSTIN APRN [id number] 05/25/2013 09:28:00 05/25/2013 23:59:59 CLS Outpatient TYRESE GAMING DO [id number] 06/23/2012 10:59:00 06/23/2012 23:59:59 CLS Outpatient [id number] 05/05/2012 10:37:00 05/05/2012 23:59:59 CLS Outpatient TYRESE GAMING DO [id number] 04/13/2012 14:26:00 04/13/2012 23:59:59 CLS Outpatient [id number] 03/29/2012 14:13:00 03/29/2012 23:59:59 CLS Outpatient [id number] 03/09/2012 14:05:00 03/09/2012 23:59:59 [place] [id number] 01/18/2012 14:32:00 01/18/2012 23:59:59 CLS Outpatient [id number] 11/17/2012 09:07:00 Document Registration [id number] 11/13/2012 13:57:00 Document Registration [id number] 09/01/2012 07:52:00 Document Registration [id number] 08/11/2012 08:45:00 Document Registration [id number] 07/28/2012 10:23:00 Document Registration [id number] 06/29/2018 16:12:00 06/29/2018 23:59:59 CLS Emergency SAÚL PINZON APRN [facility] ER R FOOT PAIN/NO INJ [id number] 05/31/2017 11:51:00 05/31/2017 23:59:59 CLS Outpatient TINO SHELBY [facility] CARD E04.9 GOITER [id number] 05/13/2017 13:20:00 05/13/2017 23:59:59 CLS Outpatient ALONZO LIZZIE Nasima ON SITE CONSTRUCTION SUPERINTENDENT [facility] RAD E04.9 GOITER [id number] 07/04/2015 09:15:00 07/04/2015 23:59:59 CLS Outpatient HERMELINDALBENITO FORMAN E ON SITE CONSTRUCTION SUPERINTENDENT [facility] RAD EPLGASTRIC ABDOMINAL PAIN [id number] 06/27/2015 09:47:00 06/27/2015 23:59:59 CLS Outpatient HELBENITO ROSA E ON SITE CONSTRUCTION SUPERINTENDENT [facility] RAD EPIGASTRIC ABD PAIN, PCOS [id number] 08/02/2014 18:14:00 08/02/2014 18:54:00 DIS Emergency SAÚL PINZON ON SITE CONSTRUCTION SUPERINTENDENT [facility] ER RASH [id number] 04/29/2015 18:33:00 Document Registration [id number] 06/01/2012 18:26:00 Document Registration [id number] 03/22/2012 22:02:00 Document Registration [id number] 12/01/2010 22:33:00 Document Registration [id number] 07/24/2010 18:46:00 Document Registration [id number] 05/13/2010 19:04:00 Document Registration
[2018-08-24] MEDS ORDERED: RT-ALBUINH IH (10:36)
[2018-08-24] MEDS ORDERED: FLT11013 IH (10:36)
[2018-08-24] MEDS ORDERED: OMEP20CA12 PO (10:36)
--- NOTE | 2018-08-24 11:37 | Diagnostic Imaging Report ---
CHEST PA/LAT (2 VIEW) Indication: Cough Comparison: None available. Findings: No focal pneumonic consolidation, pleural effusion or pneumothorax. Normal heart size and pulmonary vasculature. Impression: No acute cardiopulmonary process. Dictated by: Dictated on workstation # [id number]
[2018-08-24 12:39] VITALS: BP 120/76
== END 2018-08-24 12:39 | disposition home or self-care (01) ==
LOC: EDUNIT# 09:57 → ER 09:58
DX: J45.990 Exercise induced bronchospasm (principal); K21.9 Gastro-esophageal reflux disease without esophagitis; Z79.51 Long term (current) use of inhaled steroids; Z87.19 Personal history of other diseases of the digestive system
CPT/HCPCS: 71046; 84703; 94640

== ENCOUNTER 2019-05-07 20:09 | Emergency (ER) | payer OTHER ==
[~2019-05-07] VITALS: Ht 170.1 cm; Wt 105.4 kg
[~2019-05-07 20:09] MED LIST changes: +FLT11013 IH; +OMEP-280 PO; +RT-ALBUINH IH
--- NOTE | 2019-05-07 20:56 | ED Cough/URI ---
General Chief Complaint: Cough/Cold/Flu Symptoms Stated Complaint: DIAG FLU/COUGHING GETTING WORSE Nursing Triage Note: Patient ambulatory to ER with family. Patient states she was diagnosed with Influenza B on and was given tamiflu. She states her cough has gotten worse and is complaining of shortness of breath. Patient has been taking tamiflu but has not taken any tylenol or Ibuprofen today. Patient awake and alert. No respiratory distress present at time of triage. Sepsis Screen: No Definite Risk Source: patient Exam Limitations: no limitations History of Present Illness Date Seen by Provider: May 07, 2019 Time Seen by Provider: 20:54 Initial Comments 23-year-old female who presents to the emergency room accompanied by family for complaints of increasing shortness of breath and cough. She reports that she had diagnosis of influenza B the last week and was given Tamiflu and has been taking as prescribed but reports worsening shortness of breath and cough. She does have history of asthma which she uses inhalers for. She is in no acute distress on arrival to the emergency room. She has not been treating her fevers with Tylenol or Motrin. Associated Symptoms: cough, shortness of breath Allergies and Home Medications Allergies Coded Allergies: No Known Drug Allergies (Unverified , 08/12/08) Home Medications Albuterol 17 Gm Aerosol, 1 GM IH PRN, (Reported) Albuterol Sulfate 1 Puff Puff, 2 PUFF IH Q4H PRN for COUGH 1 PUFF = 90 MCG Prescribed by: MARIA ESTHER TORRES on 08/24/18 103 Azithromycin 250 Mg Tablet, 250 MG PO UD TAKE 2 TABLETS TODAY, THEN TAKE 1 TABLET DAILY FOR 4 MORE DAYS Prescribed by: SAÚL PINZON on 04/29/15 185 D-Methorphan Hb/P-Epd HCl/Bpm 118 Ml Syrup, 5 ML PO Q4H PRN for COUGH Prescribed by: SAÚL PINZON on 04/29/15 185 Fluticasone Propionate 1 Ea Aero, 2 PUFF IH DAILY Prescribed by: MARIA ESTHER TORRES on 08/24/18 103 Omeprazole 20 Mg Capsule.dr, 20 MG PO DAILY Prescribed by: MARIA ESTHER TORRES on 08/24/18 103 Triamcinolone Acet 15 Gm Cr, 0 TOP BID - TID PRN APPLY SPRARINGLY TO AFFECTED AREA(S) Prescribed by: SAÚL PINZON on 08/02/14 1845 Patient Home Medication List Home Medication List Reviewed: Yes Review of Systems Review of Systems Constitutional: see HPI; No chills; fever Respiratory: see HPI, cough All Other Systems Reviewed Negative Unless Noted: Yes Past Oukgnig-Uyyeob-Xedxcm Hx Past Med/Social Hx: Reviewed Nursing Past Med/Soc Hx Patient Social History Alcohol Use: Occasionally Uses Recreational Drug Use: No Smoking Status: Never a Smoker 2nd Hand Smoke Exposure: No Recent Foreign Travel: No Contact w/Someone Who Travel: No Recent Infectious Disease Expo: Yes Recent Hopitalizations: No Physical Abuse: No Sexual Abuse: No Mistreated: No Fear: No Immunizations Up To Date PED Vaccines UTD: Yes Seasonal Allergies Seasonal Allergies: No Past Medical History Surgeries: No Respiratory: Yes Asthma Cardiac: No Neurological: No Reproductive Disorders: No Sexually Transmitted Disease: No HIV/AIDS: No Genitourinary: No Gastrointestinal: No Musculoskeletal: No Endocrine: No HEENT: No Cancer: No Psychosocial: No Integumentary: No Blood Disorders: No Adverse Reaction/Blood Tranf: No Family Medical History Reviewed Nursing Family Hx Asthma Physical Exam Vital Signs - First Documented 05/07/19 20:33 Temp 37.7 Pulse 107 Resp 18 B/P (MAP) 119/82 (94) Pulse Ox 96 O2 Delivery Room Air Capillary Refill : Less Than 3 Seconds Height: 5'7.00" Weight: 210lbs. 8oz. 95.752700se; 36.00 BMI Method:Stated General Appearance: WD/WN, no apparent distress HEENT: PERRL/EOMI, normal ENT inspection, TMs normal, pharynx normal Respiratory: chest non-tender, lungs clear, normal breath sounds, no respiratory distress, no accessory muscle use, respiratory distress Cardiovascular: normal peripheral pulses, regular rate, rhythm, no edema, no gallop, no JVD, no murmur Extremities: normal capillary refill Neurologic/Psychiatric: alert, oriented x 3 Skin: normal color, warm/dry Progress/Results/Core Measures Suspected Sepsis Recent Fever Within 48 Hours: Yes Infection Criteria Present: None New/Unexplained Altered Menta: No Sepsis Screen: No Definite Risk SIRS Temperature: Pulse: 107 Respiratory Rate: 18 Blood Pressure 119 /82 Mean: 94 Results/Orders My Orders Orders - EDITH CHRISTIAN Chest Pa/Lat (2 View) (05/07/19 20:51) Vital Signs/I&O 05/07/19 20:33 Temp 37.7 Pulse 107 Resp 18 B/P (MAP) 119/82 (94) Pulse Ox 96 O2 Delivery Room Air Capillary Refill : Less Than 3 Seconds Blood Pressure Mean: 94 Departure Impression Primary Impression: Influenza Disposition: 01 HOME, SELF-CARE Condition: Stable/Unchanged Departure-Patient Inst. Decision time for Depature: 21:24 Referrals: [facility] (PCP/Family) Primary Care Physician Patient Instructions: Flu, Adult (DC) Add. Discharge Instructions: Take medications as prescribed. Follow-up with your primary care provider for close follow-up. Return back to the emergency room for worsening symptoms or concerns as needed. All discharge instructions reviewed with patient and/or family. Voiced understanding. Scripts Benzonatate (Tessalon Perle) 100 Mg Capsule 100 MG PO TID for 7 Days, #21 CAP Prov: EDITH CHRISTIAN 05/07/19 EDITH CHRISTIAN May 07, 2019 20:56
--- NOTE | 2019-05-07 21:11 | Diagnostic Imaging Report ---
INDICATION: Cough and cold and flulike symptoms PA and lateral chest obtained at 0905 p.m. and compared to 08/24/2018. Heart and mediastinal silhouette are normal in appearance. The lungs are clear. There is no pneumothorax or pleural fluid. IMPRESSION: Negative chest. Dictated by: Dictated on workstation # [id number]
[2019-05-07] MEDS ORDERED: BENZ-13 PO (21:26)
[2019-05-07 21:35] VITALS: BP 119/82
== END 2019-05-07 21:35 | disposition home or self-care (01) ==
LOC: EDUNIT# 20:09 → ER 20:11
DX: J11.1 Influenza due to unidentified influenza virus with other respiratory manifestations (principal); J45.909 Unspecified asthma, uncomplicated; Z79.51 Long term (current) use of inhaled steroids
CPT/HCPCS: 71046

== ENCOUNTER 2022-02-12 19:10 | Emergency (ER) | payer SELFPAY ==
[~2022-02-12] VITALS: Ht 170 cm; Wt 73.0 kg
[~2022-02-12 19:10] MED LIST changes: +ALBU8.5H6 IH; +BENZ-13 PO; -OMEP-280 PO; +OMEP20CA18 PO; -RT-ALBUINH IH
[2022-02-12 19:13] VITALS: BP 146/90
[2022-02-12] MEDS ORDERED: RX-NAPROXEN (NAPROSYN) 250 MG TAB PPK#4 PO STA (19:23)
[2022-02-12] MEDS ORDERED: NAPR500T8 PO (19:26)
--- NOTE | 2022-02-12 19:26 | ED Lower Extremity ---
General Chief Complaint: Lower Extremity Stated Complaint: RIGHT LEG PAIN Nursing Triage Note: c/o intermittant right calf pain x10 days after bending over tub bathing dog. Source: patient, mother History of Present Illness Date Seen by Provider: Feb 12, 2022 Time Seen by Provider: 19:14 Initial Comments PT ARRIVES VIA POV FROM HOME WITH MOTHER C/O RIGHT CALF PAIN X 10 DAYS PT WAS LEANING OVER THE TUB GIVING HER DOG A BATH, AND HAD PAIN IN RIGHT CALF NO DIRECT TRAUMA ONLY HAS PAIN WITH STANDING OR WALKING NO SWELLING OR BRUISING OR REDNESS NO PARESTHESIAS OR MOTOR DEFICITS NO HISTORY OF SIMILAR OR ANY PRIOR INJURIES TO THIS LEG TOOK TYLENOL YESTERDAY HAS NOT SOUGHT CARE UNTIL TONIGHT SYMPTOMS NO DIFFERENT TONIGHT PCP: [facility] Allergies and Home Medications Allergies Coded Allergies: No Known Drug Allergies (Unverified , 08/12/08) Patient Home Medication List Home Medication List Reviewed: Yes Naproxen (Naproxen) 500 Mg Tablet.dr, 500 MG PO BID Prescribed by: SUHA VILLANUEVA on 02/12/221925 Discontinued Medications Albuterol (Proventil Inh) 17 Gm Aerosol, 1 GM IH PRN, (Reported) Discontinued Reason: No Longer Taking Entered as Reported by: LUBA MCKEON on 07/24/101849 Last Action: Discontinued Albuterol Sulfate (Ventolin Hfa) 1 Puff Puff, 2 PUFF IH Q4H PRN for COUGH Discontinued Reason: No Longer Taking Prescribed by: MARIA ESTHER TORRES on 08/24/18 1036 Last Action: Discontinued Azithromycin (Zithromax) 250 Mg Tablet, 250 MG PO UD Discontinued Reason: No Longer Taking Prescribed by: SAÚL PINZON on 04/29/151853 Last Action: Discontinued Benzonatate (Tessalon Perle) 100 Mg Capsule, 100 MG PO TID Discontinued Reason: No Longer Taking Prescribed by: EDITH CHRISTIAN on 05/07/192125 Last Action: Discontinued D-Methorphan Hb/P-Epd HCl/Bpm (Bromfed Dm Cough Syrup) 118 Ml Syrup, 5 ML PO Q4H PRN for COUGH Discontinued Reason: No Longer Taking Prescribed by: SAÚL PINZON on 04/29/151853 Last Action: Discontinued Fluticasone Propionate (Flovent Hfa 110 mcg) 1 Ea Aero, 2 PUFF IH DAILY Discontinued Reason: No Longer Taking Prescribed by: MARIA ESTHER TORRES on 08/24/18 1036 Last Action: Discontinued Omeprazole (Omeprazole) 20 Mg Capsule.dr, 20 MG PO DAILY Discontinued Reason: No Longer Taking Prescribed by: MARIA ESTHER TORRES on 08/24/18 1036 Last Action: Discontinued Triamcinolone Acet (Triamcinolone 0.1% Cream) 15 Gm Cr, 0 TOP BID - TID PRN Discontinued Reason: No Longer Taking Prescribed by: SAÚL PINZON on 08/02/14 1845 Last Action: Discontinued Review of Systems Constitutional: no symptoms reported LMP: Jan 22, 2022 Musculoskeletal: see HPI Skin: no symptoms reported Psychiatric/Neurological: No Symptoms Reported Past Qheizyy-Slqlgy-Ewkdgs Hx Patient Social History Tobacco Use?: Yes Smoking Status: Current Someday Smoker Use of E-Cig and/or Vaping dev: Yes E-Cig or Vaping type used: Nicotine Use of E-Cig and/or Vaping Chris: Current Everyday User Substance use?: No Alcohol Use?: Yes Alcohol Frequency: Once in a while Pt feels they are or have been: No Immunizations Up To Date PED Vaccines UTD: Yes First/Initial COVID19 Vaccinat: x2 Seasonal Allergies Seasonal Allergies: No Past Medical History Surgery/Hospitalization HX: denies Surgeries: Yes (DENTAL SURGERY ) Respiratory: Yes Asthma Cardiac: No Neurological: No : No Last Menstrual Period: Jan 22, 2022 Reproductive Disorders: No Sexually Transmitted Disease: No HIV/AIDS: No Genitourinary: No Gastrointestinal: No Musculoskeletal: No Endocrine: No HEENT: No Cancer: No Psychosocial: No Integumentary: No Blood Disorders: No Adverse Reaction/Blood Tranf: No Family Medical History Asthma Physical Exam Vital Signs Vital Signs - First Documented 02/12/22 19:13 Temp 37.0 Pulse 99 Resp 16 B/P (MAP) 146/90 (108) Pulse Ox 99 O2 Delivery Room Air Capillary Refill : Less Than 3 Seconds Height, Weight, BMI Height: 5'7.00" Weight: 210lbs. 8oz. 95.573506vw; 25.00 BMI Method:Stated General Appearance: WD/WN, no apparent distress Hips: bilateral hip normal inspection Legs: bilateral leg normal inspection; right leg other (NO CALF TENDERNESS. NO SWELLING OR BRUISING OR EXTERNAL EVIDENCE OF TRAUMA. MOTOR/SENSORY/VASCULAR INTACT. ) Knees: bilateral knee normal inspection Ankles: bilateral ankle normal inspection Feet: bilateral foot normal inspection Neurologic/Tendon: normal sensation, normal motor functions, normal tendon functions Neurologic/Psychiatric: director business management II-XII nml as tested, no motor/sensory deficits, alert, oriented x 3 Skin: normal color, warm/dry; No ecchymosis Procedures/Interventions Splinting and Joint Reduction : Heath wrap: Yes Immobilizers: Step Light Walker s/m/lg Progress/Results/Core Measures Results/Orders My Orders Orders - SUHA VILLANUEVA DO Rx-Naproxen (Rx-Naprosyn) (02/12/22 19:23) Heath Bandage (02/12/22 19:23) Steplite (02/12/22 19:23) Vital Signs/I&O 02/12/22 19:13 Temp 37.0 Pulse 99 Resp 16 B/P (MAP) 146/90 (108) Pulse Ox 99 O2 Delivery Room Air Blood Pressure Mean: 108 Departure Impression Primary Impression: Strain of right calf muscle Disposition: HOME, SELF-CARE Condition: Stable Departure-Patient Inst. Decision time for Depature: 19:25 Referrals: [facility] (PCP/Family) Primary Care Physician Patient Instructions: Leg Muscle Strain ED Add. Discharge Instructions: HEATH WRAP AND WALKING BOOT AT ALL TIMES--MAY REMOVE WHILE SLEEPING FOLLOW UP WITH [facility] IN 1 WEEK FOR FURTHER CARE--CALL IN THE MORNING TO SCHEDULE APPOINTMENT All discharge instructions reviewed with patient and/or family. Voiced understanding. Scripts Naproxen (Naproxen) 500 Mg Tablet. 500 MG PO BID, #20 TAB Prov: SUHA VILLANUEVA DO 02/12/22 SUAH VILLANUEVA DO Feb 12, 2022 19:26
== END 2022-02-12 19:29 | disposition home or self-care (01) ==
LOC: EDUNIT# 19:10 → ER 19:12
DX: S86.911A Strain of unspecified muscle(s) and tendon(s) at lower leg level, right leg, initial encounter (principal); F17.290 Nicotine dependence, other tobacco product, uncomplicated; X50.1XXA Overexertion from prolonged static or awkward postures, initial encounter
CPT/HCPCS: 99283

== ENCOUNTER 2022-06-11 17:21 | Emergency (ER) | payer SELFPAY ==
[~2022-06-11] VITALS: Ht 170 cm; Wt 70.3 kg
[~2022-06-11 17:21] MED LIST changes: +NAPR500T8 PO
[2022-06-11 17:29] VITALS: BP 127/83
[2022-06-11] MEDS ORDERED: IBUPROFEN 800 MG (MOTRIN) TAB PO ONE (17:45)
--- NOTE | 2022-06-11 17:48 | ED Upper Extremity ---
General Chief Complaint: Upper Extremity Stated Complaint: LEFT ARM PAIN Nursing Triage Note: PT AMB TO TRIAGE WITH C/O L ELBOW PAIN X3 DAYS. PT TOOK TYLENOL 3 DAYS AGO AND DENIES TAKING ANYTHING SINCE Source: patient Exam Limitations: no limitations History of Present Illness Date Seen by Provider: Jun 11, 2022 Time Seen by Provider: 17:35 Initial Comments 26-year-old female presents to the ED with complaints of left elbow pain for the last 2 days. She states that her elbow locks up at times, and she popped it resulting in pain. States the pain has been constant since this. States she took Tylenol 2 days ago, states it helped a little bit. She has not had any pain medication recently. She reports she has been trying to ice it, but putting pressure on the area hurts. She complains of pain on olecranon process and over medial collateral ligament. Past medical history includes asthma, currently only uses an inhaler. Allergies and Home Medications Allergies Coded Allergies: No Known Drug Allergies (Unverified , 08/12/08) Patient Home Medication List Home Medication List Reviewed: Yes Naproxen (Naproxen) 500 Mg Tablet.dr, 500 MG PO BID Prescribed by: SUHA VILLANUEVA on 02/12/221925 Review of Systems Constitutional: see HPI Past Crpgzvf-Rwzlbo-Bpjmit Hx Patient Social History Tobacco Use?: No Use of E-Cig and/or Vaping dev: Yes Substance use?: No Alcohol Use?: Yes Alcohol Frequency: Once in a while Pt feels they are or have been: No Immunizations Up To Date PED Vaccines UTD: Yes Influenza Vaccine Up-to-Date: No; Not Current First/Initial COVID19 Vaccinat: x2 Second COVID19 Vaccination Navin: x2 Third COVID19 Vaccination Date: x2 Seasonal Allergies Seasonal Allergies: No Past Medical History Surgery/Hospitalization HX: ASTHMA Surgeries: Yes (DENTAL SURGERY ) Respiratory: Yes Asthma Cardiac: No Neurological: No Last Menstrual Period: May 20, 2022 Reproductive Disorders: No Sexually Transmitted Disease: No HIV/AIDS: No Genitourinary: No Gastrointestinal: No Musculoskeletal: No Endocrine: No HEENT: No Cancer: No Psychosocial: No Integumentary: No Blood Disorders: No Adverse Reaction/Blood Tranf: No Family Medical History Asthma Physical Exam Vital Signs Vital Signs - First Documented 06/11/22 17:29 Temp 36.7 Pulse 118 Resp 18 B/P (MAP) 127/83 (98) Capillary Refill : Height, Weight, BMI Height: 5'7.00" Weight: 210lbs. 8oz. 95.958715av; 24.00 BMI Method:Stated General Appearance: WD/WN, no apparent distress Neck: supple, normal inspection Cardiovascular: regular rate, rhythm, no edema, no gallop, no JVD, no murmur Respiratory: lungs clear, normal breath sounds, no respiratory distress, no accessory muscle use Shoulder: normal inspection, non-tender, no evidence of injury, normal ROM Elbow/Forearm: normal inspection (Negative valgus and varus test), no evidence of injury, normal ROM, Left, bone tenderness, soft tissue tenderness Neurologic/Psychiatric: alert, normal mood/affect Skin: normal color, warm/dry Progress/Results/Core Measures Results/Orders My Orders Orders - MARGOT GOODMAN APRN Ibuprofen Tablet (Motrin Tablet) (06/11/22 17:45) Elbow, Left, 3 Views (06/11/22 17:51) Medications Given in ED Vital Signs/I&O Blood Pressure Mean: 98 Progress Progress Note : Time: 17:38 Progress Note Patient seen and evaluated, resting comfortably in recliner, no acute distress. Based on exam and symptoms, concern for elbow fracture, dislocation or sprain. X-ray of left elbow ordered. Ibuprofen ordered. 1805 x-ray reviewed, negative for acute osseous abnormality. Results discussed with patient. Will discharge with Heath bandage. Patient instructed to take ibuprofen as needed for pain and follow-up with primary care provider. Discharge instructions and return precautions provided Departure Impression Primary Impression: Elbow strain Disposition: 01 HOME, SELF-CARE Condition: Stable Departure-Patient Inst. Decision time for Depature: 18:07 Referrals: [facility] (PCP/Family) Primary Care Physician Patient Instructions: Elbow Sprain (DC) Add. Discharge Instructions: Wear Heath bandage as needed for comfort. Ice the elbow for 20 minutes at a time several times a day. Take 800 mg of ibuprofen every 8 hours with food as needed for pain. Follow-up with primary care provider if pain continues. Return for severe pain, inability to move arm, numbness or weakness, or any other new, concerning, or worsening symptoms. All discharge instructions reviewed with patient and/or family. Voiced understanding. MARGOT GOODMAN APRN Jun 11, 2022 17:48
--- NOTE | 2022-06-11 18:03 | Diagnostic Imaging Report ---
HISTORY: Left elbow pain TECHNIQUE: 3 views of the left elbow COMPARISON: None FINDINGS: No acute fracture or dislocation is seen in the left elbow. Alignment is normal and joint spaces are preserved. No elbow joint effusion is seen. IMPRESSION: 1. No acute osseous abnormality is seen in the left elbow. Dictated by: Dictated on workstation # [id number]
== END 2022-06-11 18:18 | disposition home or self-care (01) ==
LOC: EDUNIT# 17:21 → ER 17:23
DX: S56.812A Strain of other muscles, fascia and tendons at forearm level, left arm, initial encounter (principal); F17.290 Nicotine dependence, other tobacco product, uncomplicated; J45.909 Unspecified asthma, uncomplicated; Z79.51 Long term (current) use of inhaled steroids; X58.XXXA Exposure to other specified factors, initial encounter
CPT/HCPCS: 73080